=== PATIENT | female | born 1930 | race Asian ===

== ENCOUNTER 2018-01-07 03:41 | Inpatient (IN) | payer MEDICARE, MEDICAID ==
[~2018-01-07] VITALS: Ht 152.4 cm; Wt 72.6 kg
[2018-01-07] VITALS (7 sets, daily range): BP systolic 103–132; BP diastolic 47–69
--- NOTE | 2018-01-07 03:57 | Emergency Room Report ---
History of Present Illness General Chief Complaint: Multiple Trauma/Fall Source: Patient, Medical Record Present Illness HPI Is an 87 year-old Frisian female with a history sick sinus syndrome with pacemaker. She presents with mechanical fall and right hip pain. She was getting out of bed to go to the bathroom and tripped and fall. Unable to get up. [facility] called 911. No other injury. No head injury. Worse with movement. Pain is controlled with holding still. Worse with movement. Allergies: Coded Allergies: No Known Allergies (Unverified , 01/07/18) Patient History Past Medical History: see triage record, old chart reviewed, CAD Past Surgical History: pacemaker Pertinent Family History: none Social History: Denies: smoking Last Menstrual Period: none Now: No Immunizations: other Reviewed Nursing Documentation: PMH: Agreed; PSxH: Agreed Nursing Documentation-PMH Hx Pacemaker: Yes Review of Systems Eye: Denies: eye pain, blurred vision ENT: Denies: ear pain, nose congestion, throat swelling Respiratory: Denies: cough, shortness of breath Cardiovascular: Denies: chest pain, palpitations Gastrointestinal: Denies: abdominal pain, diarrhea, nausea, vomiting Musculoskeletal: Reports: joint pain; Denies: back pain Skin: Denies: rash Neurological: Denies: headache, numbness Endocrine: Denies: increased thirst, increased urine Hematologic/Lymphatic: Denies: easy bruising All Other Systems: negative except mentioned in HPI Physical Exam Vital Signs Date Time Temp Pulse Resp B/P (MAP) Pulse Ox O2 Delivery O2 Flow Rate FiO2 01/07/18 03:42 97.3 60 18 160/69 98 Room Air 97.3 vital signs with high blood pressure Sp02 EP Interpretation: reviewed, normal General Appearance: well appearing, no apparent distress, alert Head: normocephalic, atraumatic Eyes: bilateral eye PERRL, bilateral eye EOMI ENT: hearing grossly normal, normal pharynx Neck: full range of motion, supple, no meningismus Respiratory: chest non-tender, lungs clear, normal breath sounds Cardiovascular #1: regular rate, rhythm, no murmur Gastrointestinal: normal bowel sounds, non tender, no mass, no organomegaly, no bruit, non-distended Musculoskeletal: back normal, other - right leg is shortened and internally rotated. Neurologic: alert, oriented x3 Psychiatric: mood/affect normal Skin: warm/dry Medical Decision Making Diagnostic Impression: Primary Impression: Intertrochanteric fracture of right femur Qualified Codes: S72.141A - Displaced intertrochanteric fracture of right femur, initial encounter for closed fracture Additional Impressions: CKD (chronic kidney disease) Qualified Codes: N18.9 - Chronic kidney disease, unspecified Anemia Qualified Codes: D64.9 - Anemia, unspecified ER Course Patient presents with mechanical fall with a right hip fracture. No other injury. I discussed the case initially with Dr. Byers who is covering for Dr. Madsen. Lab Results Impression labs at baseline EKG Diagnostic Results Rate: normal Rhythm: NSR ST Segments: no acute changes Rhythm Strip Diag. Results Rhythm Strip Time: 04:54 EP Interpretation: yes Rate: 60 Rhythm: NSR Chest X-Ray Diagnostic Results Chest X-Ray Diagnostic Results : Chest X-Ray Ordered: Yes # of Views/Limited/Complete: 1 View Indication: Other EP Interpretation: Yes Interpretation: no consolidation, no effusion, no pneumothorax, no acute cardiopulmonary disease Impression: No acute disease Electronically Signed by: Urbano Correa MD Other X-Ray Diagnostic Results Other X-Ray Diagnostic Results : X-Ray ordered: Rt hip # of Views/Limited Vs Complete: 3 View Indication: Pain EP Interpretation: Yes Interpretation: no dislocation, no soft tissue swelling, other - displaced IT frx. Impression: Other - Rt hip frx Electronically Signed by: Urbano Correa MD Last Vital Signs Date Time Temp Pulse Resp B/P (MAP) Pulse Ox O2 Delivery O2 Flow Rate FiO2 01/07/18 03:42 97.3 60 18 160/69 98 Room Air 97.3 Status: improved Disposition: ADMITTED INPATIENT Condition: Serious URBANO CORREA M.D. Jan 07, 2018 03:57
[2018-01-07] MEDS ORDERED: OYSTER SHELL C1 EA17 PO (04:00)
[2018-01-07] MEDS ORDERED: ISOSORBIDE MONO20 MG PO (04:00)
[2018-01-07] MEDS ORDERED: LACTULOSE20 GM/301 ORAL (04:00)
[2018-01-07] MEDS ORDERED: EPOGEN20000 UNI1 SUBQ (04:00)
[2018-01-07] MEDS ORDERED: EPOGEN10000 UNIT SUBQ (04:00)
[2018-01-07] MEDS ORDERED: ELIQUIS2.5 MG PO (04:00)
[2018-01-07] MEDS ORDERED: FOSAMAX70 MG ORAL (04:00)
[2018-01-07] MEDS ORDERED: ACETAMINOPHEN325 M1 ORAL (04:00)
[2018-01-07] MEDS ORDERED: NEURONTIN100 MG ORAL (04:00)
[2018-01-07] MEDS ORDERED: ISOSORBIDE MONO30 M1 PO (04:00)
[2018-01-07] MEDS ORDERED: LIPITOR20 MG ORAL (04:00)
[2018-01-07] MEDS ORDERED: DULCOLAX10 MG RC (04:00)
[2018-01-07] MEDS ORDERED: FERROUS SULFAT325 MG ORAL (04:00)
[2018-01-07] MEDS ORDERED: AMIODARONE HCL200 MG ORAL (04:00)
[2018-01-07] MEDS ORDERED: Morphine Sulfate 4mg/ml Inj (IV USE ONLY) IVP ONE ×2 (04:00→06:45)
[2018-01-07] MEDS ORDERED: VESICARE5 MG ORAL (04:00)
[2018-01-07] MEDS ORDERED: FOLIC ACID1 MG ORAL (04:00)
[2018-01-07 04:17] LABS: BASOPHILS % (AUTO) 0.2 % (0.0-2.0); EOSINOPHILS % (AUTO) 0.8 % (0.0-3.0); HEMOGLOBIN 10.7 G/DL (12.0-16.0); LYMPHOCYTES % (AUTO) 24.9 % (20.0-45.0); MEAN CORPUSCULAR VOLUME 106 FL (80-99); MONOCYTES % (AUTO) 6.5 % (1.0-10.0); NEUTROPHILS % (AUTO) 67.5 % (45.0-75.0); PLATELET COUNT 155 K/UL (150-450); RED BLOOD COUNT 3.04 M/UL (4.20-5.40); RED CELL DISTRIBUTION WIDTH 13.7 % (11.6-14.8); WHITE BLOOD COUNT 9.8 K/UL (4.8-10.8)
[2018-01-07 04:27] LABS: ANION GAP 10 mmol/L (5-15); BLOOD UREA NITROGEN 27 mg/dL (7-18); CALCIUM 8.8 MG/DL (8.5-10.1); CARBON DIOXIDE 26 MMOL/L (21-32); CHLORIDE 101 MMOL/L (98-107); SODIUM 137 MMOL/L (136-145)
[2018-01-07 04:59] LABS: APPEARANCE,URINE CLEAR; BILIRUBIN, URINE NEGATIVE (NEGATIVE); COLOR,URINE PALE YELLOW; GLUCOSE, URINE (UA) NEGATIVE (NEGATIVE); KETONES,URINE NEGATIVE (NEGATIVE); LEUKOCYTE ESTERASE ,URINE NEGATIVE (NEGATIVE); NITRITE,URINE NEGATIVE (NEGATIVE); PH,URINE 6.5 (4.5-8.0); PROTEIN,URINE NEGATIVE (NEGATIVE); UROBILINOGEN,URINE NORMAL MG/DL (0.0-1.0)
--- NOTE | 2018-01-07 11:31 | Diagnostic Imaging Report ---
Indication: Dyspnea Comparison: None A single view chest radiograph was obtained. Findings: Lung volumes are low. There are bilateral vascular markings are prominent but may be normal accounting for the low lung volumes. Heart size is also prominent. Pacemaker noted. Bones are osteopenic. IMPRESSION: Limited study due to low lung volumes.
--- NOTE | 2018-01-07 11:32 | Diagnostic Imaging Report ---
Indications: hip pain Findings: Two views of the right hip were obtained. Comminuted intertrochanteric fracture of the right hip demonstrated. Bones are osteopenic. IMPRESSION: Intratrochanteric fracture of the right hip
[2018-01-07] MEDS ORDERED: Lactulose 20gm/30ml UDC ORAL PRN (13:00)
[2018-01-07] MEDS: D5NS 1,000 ML IV SCH (13:10)
--- NOTE | 2018-01-07 20:45 | History and Physical Report ---
DATE OF ADMISSION: 01/07/2018 CHIEF COMPLAINT: Fall, right hip fracture. HISTORY OF PRESENT ILLNESS: The patient is an 87-year-old female. She has a history of conduction system disease, status post pacemaker, hypertension and chronic kidney disease. She has a history of renal cell carcinoma status post nephrectomy. She sustained a mechanical fall while at the intermediate facility, had severe right hip pain. She presented to the emergency room. On evaluation there, x-ray showed a intercurrent intertrochanteric right hip fracture. She is now admitted for further evaluation and care. PAST MEDICAL HISTORY: As above. PAST SURGICAL HISTORY: As above. CURRENT MEDICATIONS: Reconciled and reviewed. ALLERGIES: None. FAMILY HISTORY: None. SOCIAL HISTORY: There is no known history of tobacco, ethanol, or drugs. REVIEW OF SYSTEMS: GENERAL: No fever or chills. HEENT: No headaches or visual changes. CARDIOPULMONARY: No chest pain or shortness of breath. GASTROINTESTINAL: No nausea or vomiting. GENITOURINARY: No urgency or frequency. MUSCULOSKELETAL: No joint pain or swelling. NEUROLOGIC: No evidence of seizures. PHYSICAL EXAMINATION: VITAL SIGNS: Temperature 98 degrees, pulse 63, respirations 18, and blood blood pressure 117/47. GENERAL: The patient is a well-developed female, in no apparent distress. HEART: Regular rate and rhythm. LUNGS: Lungs are clear. ABDOMEN: Soft, nontender and nondistended. EXTREMITIES: Without clubbing, cyanosis, or edema. The patient has minimal range of motion on the right hip due to pain. LABORATORY AND DIAGNOSTIC DATA: EKG showed sinus bradycardia at a rate of 60. White count was 10, hemoglobin 10, hematocrit 32 and platelets of 155. Coagulations are normal. Sodium 137, potassium 4.0, chloride 101, bicarbonate 26, BUN 27, and creatinine was 2. UA was clear. ASSESSMENT: This is a pleasant female admitted with complaints of a mechanical fall and right hip fracture. 1. Right hip fracture. 2. Mechanical fall. 3. Hypertension. 4. History of renal cell carcinoma status post nephrectomy. 5. History of conduction system disease, status post pacemaker. 6. Hypertension. PLAN: Regular diet. Orthopedics consultation. Check a 2D echo. Possible surgery in the morning if stable. I left a message with both family members and I am awaiting a call back to update them on the patient's current status. Anupam Byers M.D. DR: RYAN JOB#: [id number] CC:
[2018-01-07] MEDS: Atorvastatin 20mg tab ORAL SCH (20:55)
[2018-01-07] MEDS: Heparin 5000 units/ml inj SUBQ SCH (21:00)
--- NOTE | 2018-01-07 21:38 | Cardiology Progress Note ---
Subjective Subjective The patient is seen and examined, full consult note will be dictated shortly. Objective Last 24 Hour Vital Signs Date Time Temp Pulse Resp B/P (MAP) Pulse Ox O2 Delivery O2 Flow Rate FiO2 01/07/18 16:00 98.9 62 18 109/51 (70) 96 98.9 01/07/18 12:00 98.0 67 18 107/56 (73) 97 98.0 01/07/18 09:55 Room Air 01/07/18 08:40 98.1 64 18 103/53 (70) 95 98.1 01/07/18 08:30 97.7 63 18 117/47 98 Room Air 97.7 01/07/18 07:54 97.7 63 18 117/47 98 Room Air 97.7 01/07/18 05:20 97.3 62 18 127/55 98 Room Air 97.3 01/07/18 04:40 97.3 01/07/18 04:20 98.0 88 18 132/69 98 Room Air 98.0 01/07/18 04:10 97.3 01/07/18 03:42 97.3 60 18 160/69 98 Room Air 97.3 Laboratory Tests Test 01/07/18 04:00 01/07/18 04:26 White Blood Count 9.8 K/UL (4.8-10.8) Red Blood Count 3.04 M/UL (4.20-5.40) L Hemoglobin 10.7 G/DL (12.0-16.0) L Hematocrit 32.0 % (37.0-47.0) L Mean Corpuscular Volume 106 FL (80-99) H Mean Corpuscular Hemoglobin 35.3 PG (27.0-31.0) H Mean Corpuscular Hemoglobin Concent 33.5 G/DL (32.0-36.0) Red Cell Distribution Width 13.7 % (11.6-14.8) Platelet Count 155 K/UL (150-450) Mean Platelet Volume 6.4 FL (6.5-10.1) L Neutrophils (%) (Auto) 67.5 % (45.0-75.0) Lymphocytes (%) (Auto) 24.9 % (20.0-45.0) Monocytes (%) (Auto) 6.5 % (1.0-10.0) Eosinophils (%) (Auto) 0.8 % (0.0-3.0) Basophils (%) (Auto) 0.2 % (0.0-2.0) Prothrombin Time 10.5 SEC (9.30-11.50) Prothromb Time International Ratio 1.0 (0.9-1.1) Activated Partial Thromboplast Time 27 SEC (23-33) Sodium Level 137 MMOL/L (136-145) Potassium Level 4.0 MMOL/L (3.5-5.1) Chloride Level 101 MMOL/L (98-107) Carbon Dioxide Level 26 MMOL/L (21-32) Anion Gap 10 mmol/L (5-15) Blood Urea Nitrogen 27 mg/dL (7-18) H Creatinine 2.0 MG/DL (0.55-1.30) H Estimat Glomerular Filtration Rate mL/min (>60) Glucose Level 123 MG/DL (74-106) H Calcium Level 8.8 MG/DL (8.5-10.1) Troponin I 0.000 ng/mL (0.000-0.056) Urine Color Pale yellow Urine Appearance Clear Urine pH 6.5 (4.5-8.0) Urine Specific [place] 1.010 (1.005-1.035) Urine Protein Negative (NEGATIVE) Urine Glucose (UA) Negative (NEGATIVE) Urine Ketones Negative (NEGATIVE) Urine Occult Blood Negative (NEGATIVE) Urine Nitrite Negative (NEGATIVE) Urine Bilirubin Negative (NEGATIVE) Urine Urobilinogen Normal MG/DL (0.0-1.0) Urine Leukocyte Esterase Negative (NEGATIVE) Urine RBC 0-2 /HPF (0 - 2) Urine WBC 0 /HPF (0 - 2) Urine Squamous Epithelial Cells Few /LPF (NONE/OCC) Urine Bacteria None /HPF (NONE) Pro Yo MD Jan 07, 2018 21:38
[2018-01-08] VITALS (16 sets, daily range): BP systolic 93–147; BP diastolic 42–82
[2018-01-08] MEDS: D5NS 1,000 ML IV SCH (02:01)
[2018-01-08] MEDS: Calcium Carbonate 500mg w/Vit D 200iu tab ORAL SCH (08:29)
[2018-01-08] MEDS: Amiodarone 200mg tab ORAL SCH (08:34)
[2018-01-08] MEDS: Heparin 5000 units/ml inj SUBQ SCH ×2 (08:35→20:25)
--- NOTE | 2018-01-08 08:51 | General Progress Note ---
Assessment/Plan Problem List: (1) Anemia ICD Codes: D64.9 - Anemia, unspecified SNOMED: 511771221 Qualifiers: Qualified Codes: D64.9 - Anemia, unspecified (2) CKD (chronic kidney disease) ICD Codes: N18.9 - Chronic kidney disease, unspecified SNOMED: 505306268 Qualifiers: Qualified Codes: N18.9 - Chronic kidney disease, unspecified (3) Intertrochanteric fracture of right femur ICD Codes: S72.141A - Displaced intertrochanteric fracture of right femur, initial encounter for closed fracture SNOMED: 497476912 Qualifiers: Qualified Codes: S72.141A - Displaced intertrochanteric fracture of right femur, initial encounter for closed fracture (4) Hip fracture, right ICD Codes: S72.001A - Fracture of unspecified part of neck of right femur, initial encounter for closed fracture SNOMED: 349173213 Status: stable Assessment/Plan proceed with surgery d/w dtr cont current rx Subjective ROS Limited/Unobtainable: No Constitutional: Reports: malaise, weakness HEENT: Reports: no symptoms Cardiovascular: Reports: no symptoms Respiratory: Reports: no symptoms Genitourinary: Reports: no symptoms Neurologic/Psychiatric: Reports: pre-existing deficit Endocrine: Reports: no symptoms Hematologic/Lymphatic: Reports: no symptoms Allergies: Coded Allergies: No Known Allergies (Unverified , 01/07/18) All Systems: reviewed and negative except above Subjective no events. pain controlled. ortho and cards appreciated. d/w dtr. Objective Last 24 Hour Vital Signs Date Time Temp Pulse Resp B/P (MAP) Pulse Ox O2 Delivery O2 Flow Rate FiO2 01/08/18 08:00 97.2 64 16 106/46 (66) 99 97.2 01/08/18 04:00 97.5 63 17 100/52 (68) 95 97.5 01/08/18 00:00 98.1 62 18 93/48 (63) 96 98.1 01/07/18 21:00 Room Air 01/07/18 20:00 97.0 69 17 110/47 (68) 95 97.0 01/07/18 16:00 98.9 62 18 109/51 (70) 96 98.9 01/07/18 12:00 98.0 67 18 107/56 (73) 97 98.0 01/07/18 09:55 Room Air Intake and Output 01/07/18 01/08/18 19:00 07:00 Intake Total 875 ml 1065 ml Output Total 1000 ml 275 ml Balance -125 ml 790 ml Intake Oral 800 ml 240 ml IV Total 75 ml 825 ml Output Urine Total 1000 ml 275 ml # Bowel Movements 1 Laboratory Tests 01/08/18 07:30: Troponin I 0.004 Height (Feet): 5 Height (Inches): 0.00 Weight (Pounds): 120 General Appearance: WD/WN Neck: supple Cardiovascular: regular rhythm Respiratory/Chest: lungs clear, normal breath sounds Abdomen: normal bowel sounds, non tender, soft, no organomegaly Edema: no edema noted Arm (L), no edema noted Arm (R), no edema noted Leg (L), no edema noted Leg (R), no edema noted Pedal (L), no edema noted Pedal (R), no edema noted Generalized Anupam Byers MD Jan 08, 2018 08:51
[2018-01-08] MEDS ORDERED: Imdur 30mg tab ORAL SCH (09:00)
[2018-01-08] MEDS ORDERED: Midazolam 2mg/2ml Inj ONE (12:00)
[2018-01-08] MEDS ORDERED: Duramorph PF 5mg/10ml amp ONE (12:02)
[2018-01-08] MEDS ORDERED: Bupivacaine 0.5% Inj 30 ml vial INJ ONE ×2 (12:03→13:37)
--- NOTE | 2018-01-08 13:14 | Anethesia Preoperative Eval ---
Anesthesia Pre-op PMH/ROS General Date of Evaluation: Jan 08, 2018 Time of Evaluation: 13:07 Anesthesiologist: Syd ASA Score: ASA 3 Mallampati Score Class I : Soft palate, uvula, fauces, pillars visible Class II: Soft palate, uvula, fauces visible Class III: Soft palate, base of uvula visible Class IV: Only hard plate visible Mallampati Classification: Class III Surgeon: Kate Diagnosis: R hip Fx Surgical Procedure: ORIF of R hip Fx Family History: no anesthesia problems Allergies: Coded Allergies: No Known Allergies (Unverified , 01/07/18) Medications: see eMAR Past Medical History Cardiovascular: Reports: HTN, arrhythmia - pacer in place Pulmonary: Denies: asthma, COPD, RHONDA, other Gastrointestinal/Genitourinary: Reports: GERD, other - Renal cell CA s/p nephrectomy; Denies: CRI, ESRD Neurologic/Psychiatric: Reports: depression/anxiety; Denies: dementia, CVA, TIA, other Endocrine: Denies: DM, hypothyroidism, steroids, other HEENT: Denies: cataract (L), cataract (R), glaucoma, NISQUALLY (L), NISQUALLY (R), other Hematology/Immune: Reports: anemia - mild, bleeding disorder - anticoagulated; Denies: DVT, other Musculoskeletal/Integumentary: Reports: DJD, other - osteoporosis, compression Fx, kyfoplasty; Denies: OA, RA, DDD, edema PMH Narrative: as above, admitted for mechanical fall R hip Fx. PSxH Narrative: Nephrectomy, kyphoplasty,pacemaker placement Anesthesia Pre-op Phys. Exam Physician Exam Last Vital Signs Date Time Temp Pulse Resp B/P (MAP) Pulse Ox O2 Delivery O2 Flow Rate FiO2 01/08/18 12:00 98.7 61 19 118/42 (67) 98 98.7 01/08/18 08:30 Room Air Constitutional: NAD Neurologic: CN 2-12 intact Cardiovascular: RRR Respiratory: CTA Gastrointestinal: S/NT/ND Airway Exam Mallampati Score: Class III MO: limited Neck: stiff ROM: limited Teeth: missing Dentures: upper, lower Anesthesia Pre-op A/P Labs Chemistry Test 01/08/18 07:30 Troponin I 0.004 ng/mL (0.000-0.056) Risk Assessment & Plan Assessment: ASA 3 Plan: SAB vs GA Status Change Before Surgery: No Pre-Antibiotics Drug: Ancef 1 gr. Given Within 1 Hr of Incision: Yes Moreno Velarde MD Jan 08, 2018 13:14
[2018-01-08] MEDS ORDERED: LR 1000ml ONE (13:30)
[2018-01-08] MEDS ORDERED: Propofol 200mg/20ml IV ONE (13:30)
[2018-01-08] MEDS ORDERED: Sterile Water Irrig 1000ml IRRIG ONE (13:30)
[2018-01-08] MEDS ORDERED: EPINEPHrine 1mg/1ml Amp ONE (13:37)
[2018-01-08] MEDS ORDERED: NS Irrig 1000ml IRRIG ONE (14:15)
[2018-01-08] MEDS ORDERED: LR 1000ml 1,000 ML IVLG SCH (14:20)
[2018-01-08] MEDS ORDERED: fentaNYL 100 mcg/2 mL IV PRN (14:30)
[2018-01-08] MEDS ORDERED: DiphenhydrAMINE 50mg/ml Inj IVP PRN (14:30)
--- NOTE | 2018-01-08 14:53 | Pre-Procedure Note/Attestation ---
Pre-Procedure Note/Attestation Complete Prior to Procedure Planned Procedure: right Procedure Narrative: Open Reduction Internal Fixation Right Hip Fracture Indications for Procedure Pre-Operative Diagnosis: Right Hip Intertrochanteric Fracture Attestation I attest that I discussed the nature of the procedure; its benefits; risks and complications; and alternatives (and the risks and benefits of such alternatives ), prior to the procedure, with the patient (or the patient's legal client service representative). I attest that, if there was a reasonable possibility of needing a blood transfusion, the patient (or the patient's legal client service representative) was given the [facility] standardized written summary, pursuant to the [facility] [place] Blood Safety Act ([place] Health and Safety Code # 1645, as amended). I attest that I re-evaluated the patient just prior to the surgery and that there has been no change in the patient's H&P, except as documented below: Michele Mart MD Jan 08, 2018 14:53
--- NOTE | 2018-01-08 14:55 | Operative Note - PDOC ---
Operative Note Operative Note Date of Operation/Procedure: Jan 08, 2018 Pre-op Diagnosis: Right Hip Intertrochanteric Fracture Procedure: Open Reduction Internal Fixation Right Hip Fracture Post-op Diagnosis: Same Post-op Diagnosis: same as pre-op Surgeon: Michele Mart Anesthesia: general, local Specimen: none Complications: none Condition: stable Estimated Blood Loss: minimal Drains: none Implant(s) used?: Yes Michele Mart MD Jan 08, 2018 14:55
[2018-01-08] MEDS ORDERED: HYDROcodone/Acetamin 7.5/325 tab ORAL PRN (15:00)
[2018-01-08] MEDS ORDERED: Milk of Magnesia 30ml Ud ORAL PRN (15:00)
[2018-01-08] MEDS ORDERED: Norco 5mg/325mg tab ORAL PRN (15:00)
--- NOTE | 2018-01-08 15:15 | Immediate Post-Op Evaluation ---
Immediate Post-Op Evalulation Immediate Post-Op Evalulation Procedure: ORIF R hip Fx. Date of Evaluation: Jan 08, 2018 Time of Evaluation: 15:14 IV Fluids: 1000 Blood Products: none Estimated Blood Loss: 50 Urinary Output: 150 Blood Pressure Systolic: 117 Blood Pressure Diastolic: 54 Pulse Rate: 62 Respiratory Rate: 20 O2 Sat by Pulse Oximetry: 99 Temperature (Fahrenheit): 98.1 Pain Score (1-10): 2 Nausea: No Vomiting: No Complications none Patient Status: awake, patent, none Hydration Status: adequate Moreno Velarde MD Jan 08, 2018 15:15
[2018-01-08] MEDS: Docusate Sod/Senna tab ORAL SCH (18:00)
--- NOTE | 2018-01-08 18:02 | Diagnostic Imaging Report ---
Indication: Hip fracture Technique: Intraoperative fluoroscopic images from orthopedic surgery. Comparison: Hip radiographs 01/07/2018 Operating surgeon: Michele Mart MD Total fluoroscopy time: 34.1 seconds Total fluoroscopy dose: 5.69 mGy. Findings: 3 intraoperative fluoroscopic images from orthopedic surgery demonstrate open fixation of the previously described comminuted intertrochanteric fracture. Impression: Fluoroscopic images from orthopedic surgery. Please see operative report.
[2018-01-08] MEDS: Morphine Sulfate 2mg/ml Inj(IV/IM USE ONLY) IVP PRN (18:26)
[2018-01-08] MEDS: D5 1/2NS w/KCl 20mEq 1,000 ML IV SCH (18:27)
--- NOTE | 2018-01-08 19:00 | Consultation ---
DATE OF CONSULTATION: 01/07/2018 CARDIOLOGY CONSULTATION CONSULTING PHYSICIAN: Pro Yo M.D. REFERRING PHYSICIAN: Anupam Byers M.D. REASON FOR CONSULTATION: Preoperative cardiac evaluation for noncardiac surgery. HISTORY OF PRESENT ILLNESS: The patient is a very unfortunate, 87-year-old, Telugu female with a prior history of sick sinus syndrome, status post permanent pacemaker implantation, who presents to the hospital following a mechanical fall and right hip pain. The patient was trying to get out of bed to go to the bathroom and tripped and sustained a fall. She was unable to bear any weight and 911 was called from the nursing facility and the patient was brought to [facility] Emergency Department. Initial evaluation in the emergency department confirmed displaced intertrochanteric fracture of right femur. Cardiology consultation was made for preoperative cardiac clearance as the patient is prepared for possible open reduction and internal fixation of the right femur. PAST MEDICAL HISTORY: 1. History of CAD. 2. History of sick sinus syndrome, status post dual-chamber pacemaker implantation. 3. Paroxysmal atrial fibrillation. 4. History of osteoporosis. 5. History of dyslipidemia. 6. History of chronic kidney disease. 7. History of anemia of chronic disease. PAST SURGICAL HISTORY: Dual-chamber pacemaker implantation, the brand of which is unknown. LIST OF MEDICATIONS: 1. Acetaminophen 650 mg q.4 h. p.r.n. fever and pain. 2. Amiodarone 200 mg p.o. daily. 3. Fosamax 70 mg p.o. weekly. 4. Eliquis 2.5 mg daily. 5. Lipitor 20 mg p.o. once daily. 6. Dulcolax 10 mg rectal p.r.n. constipation. 7. Oyster Shell Calcium and Vitamin D one tablet daily. 8. Epogen 10,000 units subcutaneous once a week. 9. Ferrous sulfate 325 mg twice daily. 10. Folic acid 1 mg p.o. daily. 11. Neurontin 100 mg three times daily. 12. Isosorbide mononitrate 30 mg p.o. daily. 13. Lactulose 30 mL p.o. daily p.r.n. constipation. 14. VESIcare 5 mg p.o. daily. SOCIAL HISTORY: Denies any tobacco, alcohol, or illicit drug use. FAMILY HISTORY: No premature coronary artery disease in the first-degree relatives. REVIEW OF SYSTEMS: HEENT: Denies any headache, diplopia, or blurred vision. CONSTITUTIONAL: Complains of generalized weakness, but no fever, chills, night sweats, or weight gain. CARDIOVASCULAR: Denies any chest pain, shortness of breath, PND, orthopnea, leg swelling, palpitations, or any loss of consciousness during the above event. PULMONARY: Denies any cough, hemoptysis, or wheezing. GASTROINTESTINAL: Denies any nausea, vomiting, diarrhea, constipation, abdominal pain, or GI bleed. GENITOURINARY: Denies any hematuria, dysuria, or incontinence. NEUROLOGY: Denies any motor dysfunction, sensory deficit, or altered speech. MUSCULOSKELETAL: Inability to bear weight due to right hip pain and inability to move the right leg. PHYSICAL EXAMINATION: VITAL SIGNS: Blood pressure at the time of arrival to the hospital was 160/69, respirations of 18, pulse of 60, temperature 97.3 degrees Fahrenheit, and O2 saturation 99% on room air. GENERAL: The patient is a very unfortunate, 87-year-old female, in no apparent respiratory distress. Alert and oriented x4. HEENT: Atraumatic and normocephalic. EENT: Pupils are equal, round, and reactive to light and accommodation. Extraocular muscles intact. NECK: JVP less than 5 cm. No carotid bruit. Carotid upstroke is 2+ bilaterally. CVS: Normal S1 and S2. Regular rate and rhythm. No murmurs, gallops, or rubs. Pacemaker pocket in the left pectoral area is visible. LUNGS: Clear to auscultation bilaterally. ABDOMEN: Soft, nontender, and nondistended. No hepatosplenomegaly. Positive bowel sounds. EXTREMITIES: No evidence of edema, clubbing, or cyanosis. LABORATORY FINDINGS: WBC 9.8, hemoglobin 10.7, hematocrit of 32, and platelet count is 155,000. Sodium 137, potassium is 4.0, chloride 101, bicarbonate 26, BUN of 27, creatinine 2.0, glucose 123, and calcium is 8.8. Troponin I is 0. INR is 1.0. Chest x-ray showed no acute cardiopulmonary disease. Dual-chamber pacemaker noted. A 2D echocardiography report shows normal LV systolic function with LVEF of about 55% to 60%. Mild left atrial enlargement, mild aortic regurgitation, grade 1 LV diastolic dysfunction, moderate tricuspid regurgitation with RVSP of 46 mmHg consistent with moderate pulmonary hypertension and mild pulmonary regurgitation. ASSESSMENT AND PLAN: The patient is a very unfortunate 87-year-old female, who is seen in Cardiology consultation at the request of Dr. Byers. Evaluation of the electrocardiogram, 2D echocardiography, and the patient's clinical symptoms are all in favor of stable cardiac condition. There is no evidence of ischemia on 12-lead electrocardiogram. Troponin I level is within normal limits. A 2D echocardiography shows no evidence of wall motion abnormalities with normal left ventricular ejection fraction. The patient is cleared for the right hip ORIF with the risk of coronary artery disease estimated to be less than 1%. The patient is likely having paroxysmal atrial fibrillation also. It is not mentioned in the record given the fact that she is on amiodarone. We would like to continue amiodarone. Eliquis can be stopped for the purpose of surgery and resumed following surgery, which can also be used for DVT prophylaxis. I would like to thank Dr. Byers, for the courtesy of this consultation. Pro Yo M.D. DR: BLAIR JOB#: [id number] CC:
[2018-01-08] MEDS: Atorvastatin 20mg tab ORAL SCH (20:21)
[2018-01-08] MEDS: ceFAZolin sod 2 GM in D5W 110 ML IV SCH (22:22)
--- NOTE | 2018-01-08 23:30 | Consultation ---
DATE OF CONSULTATION: 01/08/2018 REASON FOR CONSULTATION: Right hip pain. HISTORY OF PRESENT ILLNESS: The patient is an 87-year-old female, who was seen in consultation for right hip pain. She is apparently a resident at a nursing facility. She slipped while on her way to the bathroom. She was subsequently brought in yesterday and was found to have a right hip fracture and I was consulted. At the present time, the patient points to her right thigh as being the source for her pain. PAST MEDICAL HISTORY: Significant for, 1. Hypertension. 2. Chronic kidney disease. 3. History of pacemaker placement. MEDICATIONS: Well documented in the medical chart. ALLERGIES: No known drug allergies. PHYSICAL EXAM: GENERAL: This is an elderly Sinhala speaking female, in no acute distress. VITAL SIGNS: She is afebrile. Vital signs stable. EXTREMITIES: Evaluation of right lower extremity reveals any attempted motion of the right lower extremity elicits tenderness in the right groin and thigh itself is soft. She moves her toes on command. Her foot is warm, but well perfused. DIAGNOSTIC DATA: X-rays were reviewed. X-rays show a right hip intertrochanteric fracture with some mild comminution. The fracture is shortened and displaced. LABORATORY DATA: White blood count is 9.8, hematocrit 32.0, and platelet 155,000. Her INR is 1.0. IMPRESSION: Right hip intertrochanteric fracture. RECOMMENDATIONS: Open reduction and internal fixation of the right hip fracture. The patient is medically optimized and cleared by Cardiology. Plan is to proceed with open reduction and internal fixation. I have discussed in detail my plan with the patient's daughter and her granddaughter. I explained the procedure in detail. I explained all risks and benefits for the procedure. Michele Mart M.D. DR: GUSTAVO JOB#: [id number] CC:
[2018-01-09] VITALS: BP 112/59
--- NOTE | 2018-01-09 00:15 | Operative Note - Dictated ---
DATE OF OPERATION: 01/08/2018 PREOPERATIVE DIAGNOSIS: Right hip intertrochanteric fracture. POSTOPERATIVE DIAGNOSIS: Right hip intertrochanteric fracture. PROCEDURE: Open reduction and internal fixation of right hip fracture. SURGEON: Michele Mart M.D. STRUCTURAL IRON ERECTOR: None. ANESTHESIA: General endotracheal anesthesia with local anesthetic. ESTIMATED BLOOD LOSS: Less than 50 mL. IMPLANTS USED: Artie trochanteric femoral nail, short. INDICATION OF PROCEDURE: The patient is an 87-year-old female, who sustained a mechanical fall, which resulted in the above fracture. She has been medically optimized. She now presents for the above procedure. Risks and benefits were discussed with the patient's daughter and granddaughter. Informed consent was obtained. DESCRIPTION OF PROCEDURE: The patient's correct extremity was identified in the preoperative area. She was brought back to the operative where she had preoperative antibiotics administered. She had general endotracheal anesthesia. She was positioned on a fracture table. All bony prominences were adequately padded. The right lower extremity was then prepped and draped in standard surgical manner. A time-out was performed. I then made a small incision proximal to the tip of the greater trochanter, went through the skin, subcutaneous tissue, and incised the fascia. Upon the tip of the greater trochanter, I put a 3.2 mm guide pin into the proximal femur. This was found to be in very good position in both AP and lateral. I then over-reamed it. I then passed a short trochanteric femoral nail from Artie till it was fully seated. Through a separate incision, I put a lag screw and then through a smaller third incision, I put a distal locking screw to fix the nail plate. X-rays showed anatomic fixation of the fracture. At this point, I took out all instruments. I thoroughly irrigated the wounds, closed the deeper tissue with interrupted #1 Vicryl, subcutaneous tissue was closed with 2-0 Vicryl and skin with daron. Dry sterile dressings were applied. The patient was then extubated and transported to recovery in stable condition. Michele Mart M.D. DR: ANMOL JOB#: [id number] CC:
[2018-01-09] MEDS: Morphine Sulfate 2mg/ml Inj(IV/IM USE ONLY) IVP PRN (02:43)
[2018-01-09 04:00] VITALS: BP 118/57
[2018-01-09] MEDS: ceFAZolin sod 2 GM in D5W 110 ML IV SCH (05:18)
--- NOTE | 2018-01-09 07:35 | 48 Hour Post Anesthesia Eval ---
Post Anesthesia Evaluation Procedure: ORIF R hip Fx. Date of Evaluation: Jan 09, 2018 Time of Evaluation: 07:10 Blood Pressure Systolic: 118 0: 57 Pulse Rate: 60 Respiratory Rate: 18 Temperature (Fahrenheit): 99.3 O2 Sat by Pulse Oximetry: 100 Airway: patent Nausea: No Vomiting: No Pain Intensity: 0 Hydration Status: adequate Cardiopulmonary Status: at baseline Mental Status/LOC: patient returned to baseline Post-Anesthesia Complications: 0 Follow-up care needed: N/A - further care as per primary team KIMO VALDES M.D. Jan 09, 2018 07:35
[2018-01-09 08:00] VITALS: BP 114/57
[2018-01-09] MEDS: D5 1/2NS w/KCl 20mEq 1,000 ML IV SCH ×2 (08:24→20:33)
[2018-01-09 08:51] LABS: HEMATOCRIT 22.5 % (37.0-47.0); HEMOGLOBIN 7.2 G/DL (12.0-16.0); MEAN CORPUSCULAR VOLUME 109 FL (80-99); PLATELET COUNT 119 K/UL (150-450); RED BLOOD COUNT 2.07 M/UL (4.20-5.40); RED CELL DISTRIBUTION WIDTH 14.3 % (11.6-14.8); WHITE BLOOD COUNT 7.4 K/UL (4.8-10.8)
[2018-01-09] MEDS ORDERED: Enoxaparin 30mg Inj SUBQ SCH (09:00)
--- NOTE | 2018-01-09 09:26 | General Progress Note ---
Assessment/Plan Problem List: (1) Anemia ICD Codes: D64.9 - Anemia, unspecified SNOMED: 865408587 Qualifiers: Qualified Codes: D64.9 - Anemia, unspecified (2) CKD (chronic kidney disease) ICD Codes: N18.9 - Chronic kidney disease, unspecified SNOMED: 691222441 Qualifiers: Qualified Codes: N18.9 - Chronic kidney disease, unspecified (3) Intertrochanteric fracture of right femur ICD Codes: S72.141A - Displaced intertrochanteric fracture of right femur, initial encounter for closed fracture SNOMED: 835884330 Qualifiers: Qualified Codes: S72.141A - Displaced intertrochanteric fracture of right femur, initial encounter for closed fracture (4) Hip fracture, right ICD Codes: S72.001A - Fracture of unspecified part of neck of right femur, initial encounter for closed fracture SNOMED: 809333068 Status: stable, progressing Assessment/Plan post op care dvt prophylaxis skin care cont current rx follow up pending labs Subjective ROS Limited/Unobtainable: Yes Constitutional: Reports: malaise, weakness HEENT: Reports: no symptoms Cardiovascular: Reports: no symptoms Respiratory: Reports: no symptoms Gastrointestinal/Abdominal: Reports: no symptoms Genitourinary: Reports: no symptoms Neurologic/Psychiatric: Reports: no symptoms Endocrine: Reports: no symptoms Hematologic/Lymphatic: Reports: no symptoms Allergies: Coded Allergies: No Known Allergies (Unverified , 01/07/18) All Systems: reviewed and negative except above Subjective no events. pain controlled. s/p orif. Objective Last 24 Hour Vital Signs Date Time Temp Pulse Resp B/P (MAP) Pulse Ox O2 Delivery O2 Flow Rate FiO2 01/09/18 08:00 99.1 64 20 114/57 (76) 93 99.1 01/09/18 07:35 210.7 60 18 100 01/09/18 04:00 99.3 60 18 118/57 (77) 100 99.3 01/09/18 00:00 99.3 61 19 112/59 (76) 98 99.3 01/08/18 21:00 Room Air 01/08/18 20:00 98.7 63 19 126/52 (76) 100 98.7 01/08/18 17:09 98.6 67 20 123/82 (96) 98 98.6 01/08/18 16:45 98.3 61 19 147/60 100 Nasal Cannula 3 98.3 01/08/18 16:30 65 15 144/60 100 Nasal Cannula 3 01/08/18 16:15 62 18 132/55 100 Nasal Cannula 3 01/08/18 16:00 64 17 113/50 100 Nasal Cannula 3 01/08/18 16:00 98.3 01/08/18 15:45 72 15 123/52 100 Nasal Cannula 3 01/08/18 15:30 98.0 01/08/18 15:30 74 17 125/51 100 Nasal Cannula 3 01/08/18 15:25 71 20 117/56 99 Nasal Cannula 3 01/08/18 15:15 70 22 117/56 100 Nasal Cannula 3 01/08/18 15:15 208.6 62 20 99 01/08/18 15:10 70 22 117/56 100 Simple Mask 6 01/08/18 15:05 97.8 61 20 127/62 100 Simple Mask 6 97.8 01/08/18 12:00 98.7 61 19 118/42 (67) 98 98.7 Intake and Output 01/08/18 01/09/18 19:00 07:00 Intake Total 1500 ml 745 ml Output Total 950 ml 850 ml Balance 550 ml -105 ml Intake Oral 100 ml IV Total 1400 ml 745 ml Output Urine Total 900 ml 850 ml Estimated Blood Loss 50 ml Laboratory Tests 01/09/18 06:00: White Blood Count [Pending], Red Blood Count [Pending], Hemoglobin [Pending], Hematocrit [Pending], Mean Corpuscular Volume [Pending], Mean Corpuscular Hemoglobin [Pending], Mean Corpuscular Hemoglobin Concent [Pending], Red Cell Distribution Width [Pending], Platelet Count [Pending], Mean Platelet Volume [ Pending], Neutrophils (%) (Auto) [Pending], Lymphocytes (%) (Auto) [Pending], Monocytes (%) (Auto) [Pending], Eosinophils (%) (Auto) [Pending], Basophils (%) (Auto) [Pending] Height (Feet): 5 Height (Inches): 0.00 Weight (Pounds): 160 General Appearance: WD/WN, alert Neck: supple Cardiovascular: normal rate, regular rhythm Respiratory/Chest: chest wall non-tender, lungs clear, normal breath sounds Abdomen: normal bowel sounds, non tender, soft Edema: no edema noted Arm (L), no edema noted Arm (R), no edema noted Leg (L), no edema noted Leg (R), no edema noted Pedal (L), no edema noted Pedal (R), no edema noted Generalized Anupam Byers MD Jan 09, 2018 09:26
[2018-01-09] MEDS: Docusate Sod/Senna tab ORAL SCH ×2 (10:00→18:00)
[2018-01-09] MEDS: Calcium Carbonate 500mg w/Vit D 200iu tab ORAL SCH (10:00)
[2018-01-09] MEDS: Amiodarone 200mg tab ORAL SCH (10:00)
[2018-01-09 12:00] VITALS: BP 98/38
[2018-01-09] MEDS ORDERED: Sodium Chloride 500ML 500 ML IV ONE (12:15)
[2018-01-09 16:13] VITALS: BP 101/53
[2018-01-09] MEDS ORDERED: Tubing IV Secondary IV ONE (16:44)
[2018-01-09] MEDS ORDERED: NS 275ml ONE (16:44)
[2018-01-09 20:00] VITALS: BP 105/39
--- NOTE | 2018-01-09 20:19 | Cardiology Progress Note ---
Assessment/Plan Assessment/Plan 1. s/p right hip ORIF, POD #1, no richard-operative cardiac events, resume Eliquis 2.5mg bid. 2. History of sick sinus syndrome, status post dual-chamber pacemaker implantation. 3. Paroxysmal atrial fibrillation, in SR, continue amiodarone. 4. History of osteoporosis. 5. History of dyslipidemia. 6. History of chronic kidney disease. 7. History of anemia of chronic disease. Subjective Subjective Sinus rhythm at 62. Objective Last 24 Hour Vital Signs Date Time Temp Pulse Resp B/P (MAP) Pulse Ox O2 Delivery O2 Flow Rate FiO2 01/09/18 18:37 100.7 01/09/18 17:38 101.1 01/09/18 16:13 99.0 62 17 101/53 (69) 100 99.0 01/09/18 12:00 97.6 79 20 98/38 (58) 93 97.6 01/09/18 09:00 Room Air 01/09/18 08:00 99.1 64 20 114/57 (76) 93 99.1 01/09/18 07:35 210.7 60 18 100 01/09/18 04:00 99.3 60 18 118/57 (77) 100 99.3 01/09/18 00:00 99.3 61 19 112/59 (76) 98 99.3 01/08/18 21:00 Room Air Intake and Output 01/08/18 01/09/18 19:00 07:00 Intake Total 1500 ml 745 ml Output Total 950 ml 850 ml Balance 550 ml -105 ml Intake Oral 100 ml IV Total 1400 ml 745 ml Output Urine Total 900 ml 850 ml Estimated Blood Loss 50 ml 2D Echo: EF 55-60%, Grade I LVDD, RVSP 46 mmHg Laboratory Tests Test 01/09/18 06:00 White Blood Count 7.4 K/UL (4.8-10.8) Red Blood Count 2.07 M/UL (4.20-5.40) L Hemoglobin 7.2 G/DL (12.0-16.0) L Hematocrit 22.5 % (37.0-47.0) L Mean Corpuscular Volume 109 FL (80-99) H Mean Corpuscular Hemoglobin 34.7 PG (27.0-31.0) H Mean Corpuscular Hemoglobin Concent 32.0 G/DL (32.0-36.0) Red Cell Distribution Width 14.3 % (11.6-14.8) Platelet Count 119 K/UL (150-450) L Mean Platelet Volume 6.5 FL (6.5-10.1) Neutrophils (%) (Auto) % (45.0-75.0) Lymphocytes (%) (Auto) % (20.0-45.0) Monocytes (%) (Auto) % (1.0-10.0) Eosinophils (%) (Auto) % (0.0-3.0) Basophils (%) (Auto) % (0.0-2.0) Differential Total Cells Counted 100 Neutrophils % (Manual) 72 % (45-75) Lymphocytes % (Manual) 22 % (20-45) Monocytes % (Manual) 5 % (1-10) Eosinophils % (Manual) 0 % (0-3) Basophils % (Manual) 0 % (0-2) Band Neutrophils 1 % (0-8) Platelet Estimate Decreased L Platelet Morphology Normal Hypochromasia 1+ Macrocytosis 1+ Microbiology Date/Time Source Procedure Growth Status 01/07/18 09:00 Nasal Nares 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 Complete 01/07/18 09:00 Rectum VRE Culture - Final NO VANCOMYCIN RESISTANT ENTEROCOCCUS ... Complete Objective HEENT: Atraumatic and normocephalic. EENT: Pupils are equal, round, and reactive to light and accommodation. Extraocular muscles intact. NECK: JVP less than 5 cm. No carotid bruit. Carotid upstroke is 2+ bilaterally. CVS: Normal S1 and S2. Regular rate and rhythm. No murmurs, gallops, or rubs. Pacemaker pocket in the left pectoral area is visible. LUNGS: Clear to auscultation bilaterally. ABDOMEN: Soft, nontender, and nondistended. No hepatosplenomegaly. Positive bowel sounds. EXTREMITIES: No evidence of edema, clubbing, or cyanosis. Pro Yo MD Jan 09, 2018 20:19
[2018-01-09] MEDS: Atorvastatin 20mg tab ORAL SCH (20:33)
[2018-01-09] MEDS ORDERED: Docusate 100mg/10ml Liq NG SCH (21:00)
[2018-01-09] MEDS ORDERED: Ferrous Sulfate 300 MG/5 ML UDC NG SCH (21:00)
--- NOTE | 2018-01-09 21:09 | Orthopedic Progress Note ---
Orthopedic - Progress Note Subjective Additional Comments No complaint.s Objective Vital Signs Last 24 Hour Vital Signs Date Time Temp Pulse Resp B/P (MAP) Pulse Ox O2 Delivery O2 Flow Rate FiO2 01/09/18 20:00 100.4 61 22 105/39 (61) 100 100.4 01/09/18 18:37 100.7 01/09/18 17:38 101.1 01/09/18 16:13 99.0 62 17 101/53 (69) 100 99.0 01/09/18 12:00 97.6 79 20 98/38 (58) 93 97.6 01/09/18 09:00 Room Air 01/09/18 08:00 99.1 64 20 114/57 (76) 93 99.1 01/09/18 07:35 210.7 60 18 100 01/09/18 04:00 99.3 60 18 118/57 (77) 100 99.3 01/09/18 00:00 99.3 61 19 112/59 (76) 98 99.3 I&O Intake and Output 01/08/18 01/09/18 19:00 07:00 Intake Total 1500 ml 745 ml Output Total 950 ml 850 ml Balance 550 ml -105 ml Intake Oral 100 ml IV Total 1400 ml 745 ml Output Urine Total 900 ml 850 ml Estimated Blood Loss 50 ml Additional Comments Dressing c/d/i. No drainage. Thigh mild swelling, but soft. Intact motor and sensory function in foot. Foot warm to touch. Assessment Post-op Diagnosis Same Procedure Performed Open Reduction Internal Fixation Right Hip Fracture Plan Plan: PT Additional Comments Low H and H today. Patient was being transfused and spike a temp of 101.1 Recommend recheck H and H tomorrow. Not much blood loss during surgery. Encourage incentive spirometer. OOB with PT Lovenox, SCD's for DVT prophylaxis Michele Mart MD Jan 09, 2018 21:09
[2018-01-10] VITALS (9 sets, daily range): BP systolic 73–120; BP diastolic 34–58
[2018-01-10] MEDS ORDERED: Sodium Chloride 500ML 500 ML IV ONE ×2 (01:00→04:00)
[2018-01-10] MEDS: D5 1/2NS w/KCl 20mEq 1,000 ML IV SCH ×2 (01:04→15:06)
[2018-01-10] MEDS ORDERED: Morphine Sulfate 2mg/ml Inj(IV/IM USE ONLY) IVP PRN (03:00)
[2018-01-10] MEDS ORDERED: Norco 5mg/325mg tab ORAL PRN (03:00)
[2018-01-10 08:41] LABS: HEMATOCRIT 20.7 % (37.0-47.0); MEAN CORPUSCULAR VOLUME 111 FL (80-99); PLATELET COUNT 122 K/UL (150-450); RED BLOOD COUNT 1.86 M/UL (4.20-5.40); RED CELL DISTRIBUTION WIDTH 14.8 % (11.6-14.8)
[2018-01-10 08:57] LABS: HEMOGLOBIN 6.5 G/DL (12.0-16.0)
[2018-01-10] MEDS ORDERED: Eliquis 2.5mg tablet ORAL SCH ×2 (09:00→18:00)
[2018-01-10] MEDS ORDERED: Docusate 100mg/10ml Liq NG SCH (09:00)
[2018-01-10] MEDS ORDERED: Lactulose 20gm/30ml UDC ORAL PRN (09:00)
[2018-01-10] MEDS ORDERED: Ferrous Sulfate 300 MG/5 ML UDC NG SCH (09:00)
[2018-01-10] MEDS: Calcium Carbonate 500mg w/Vit D 200iu tab ORAL SCH (09:05)
[2018-01-10] MEDS: Amiodarone 200mg tab ORAL SCH (09:05)
--- NOTE | 2018-01-10 09:09 | General Progress Note ---
Assessment/Plan Problem List: (1) Anemia ICD Codes: D64.9 - Anemia, unspecified SNOMED: 251287377 Qualifiers: Qualified Codes: D64.9 - Anemia, unspecified (2) CKD (chronic kidney disease) ICD Codes: N18.9 - Chronic kidney disease, unspecified SNOMED: 589875234 Qualifiers: Qualified Codes: N18.9 - Chronic kidney disease, unspecified (3) Intertrochanteric fracture of right femur ICD Codes: S72.141A - Displaced intertrochanteric fracture of right femur, initial encounter for closed fracture SNOMED: 426726525 Qualifiers: Qualified Codes: S72.141A - Displaced intertrochanteric fracture of right femur, initial encounter for closed fracture (4) Hip fracture, right ICD Codes: S72.001A - Fracture of unspecified part of neck of right femur, initial encounter for closed fracture SNOMED: 587748682 Status: stable, progressing Assessment/Plan post op care ivf/boluses as needed transfuse dvt prophylaxis skin care cont current rx follow up pending labs Subjective ROS Limited/Unobtainable: No Constitutional: Reports: malaise, weakness HEENT: Reports: no symptoms Cardiovascular: Reports: no symptoms Respiratory: Reports: no symptoms Gastrointestinal/Abdominal: Reports: no symptoms Genitourinary: Reports: no symptoms Neurologic/Psychiatric: Reports: no symptoms Endocrine: Reports: no symptoms Hematologic/Lymphatic: Reports: no symptoms Allergies: Coded Allergies: No Known Allergies (Unverified , 01/07/18) All Systems: reviewed and negative except above Subjective hypotensive last night. decrease h/h. developed fever with transfusion- dcd. given tylenol and benadryl. multiple boluses last night. decrease uop. Objective Last 24 Hour Vital Signs Date Time Temp Pulse Resp B/P (MAP) Pulse Ox O2 Delivery O2 Flow Rate FiO2 01/10/18 05:01 70 01/10/18 05:00 78 108/47 (67) 01/10/18 04:00 97.5 69 21 86/39 (55) 100 97.5 01/10/18 02:45 72 73/34 (47) 01/10/18 01:15 97.7 67 20 89/41 (57) 93 97.7 01/10/18 01:00 67 01/10/18 00:00 98.7 66 22 101/42 (61) 97 98.7 01/09/18 21:00 Room Air 01/09/18 20:00 100.4 61 22 105/39 (61) 100 100.4 01/09/18 18:37 100.7 01/09/18 17:38 101.1 01/09/18 16:13 99.0 62 17 101/53 (69) 100 99.0 01/09/18 12:00 97.6 79 20 98/38 (58) 93 97.6 Intake and Output 01/09/18 01/10/18 19:00 07:00 Intake Total 280 ml 1375 ml Output Total 400 ml Balance 280 ml 975 ml Intake Oral 280 ml IV Total 1375 ml Output Urine Total 400 ml Laboratory Tests 01/10/18 04:03: Arterial Blood pH 7.375, Arterial Blood Partial Pressure CO2 35.8, Arterial Blood Partial Pressure O2 80.9, Arterial Blood HCO3 20.5L, Arterial Blood Oxygen Saturation 95.5, Arterial Blood Base Excess -4.3, Robin Test Positive 01/10/18 07:50: White Blood Count 6.0, Red Blood Count 1.86L, Hemoglobin 6.5*L, Hematocrit 20.7L , Mean Corpuscular Volume 111H, Mean Corpuscular Hemoglobin 34.8H, Mean Corpuscular Hemoglobin Concent 31.4L, Red Cell Distribution Width 14.8, Platelet Count 122L, Mean Platelet Volume 7.3, Neutrophils (%) (Auto) , Lymphocytes (%) (Auto) , Monocytes (%) (Auto) , Eosinophils (%) (Auto) , Basophils (%) (Auto) , Neutrophils % (Manual) [Pending], Lymphocytes % (Manual) [Pending], Platelet Estimate [Pending], Platelet Morphology [Pending] Height (Feet): 5 Height (Inches): 0.00 Weight (Pounds): 160 General Appearance: WD/WN, alert Neck: supple Cardiovascular: normal rate, regular rhythm Respiratory/Chest: chest wall non-tender, lungs clear Abdomen: normal bowel sounds, non tender, soft, no organomegaly Edema: no edema noted Arm (L), no edema noted Arm (R), no edema noted Leg (L), no edema noted Leg (R), no edema noted Pedal (L), no edema noted Pedal (R), no edema noted Generalized Anupam Byers MD Jan 10, 2018 09:09
--- NOTE | 2018-01-10 12:11 | Diagnostic Imaging Report ---
Indication: Cough Comparison: 01/07/2018 A single view chest radiograph was obtained. Findings: Interstitial opacities are prominent. Heart size is prominent but stable. Lung volumes are low. Bones are osteopenic. Pacemaker noted on the left. IMPRESSION: Mild interstitial edema suspected
[2018-01-10] MEDS ORDERED: Milk of Magnesia 30ml Ud ORAL PRN (15:00)
--- NOTE | 2018-01-10 18:20 | Orthopedic Progress Note ---
Orthopedic - Progress Note Subjective Additional Comments No complaints. Objective Vital Signs Last 24 Hour Vital Signs Date Time Temp Pulse Resp B/P (MAP) Pulse Ox O2 Delivery O2 Flow Rate FiO2 01/10/18 16:00 98.4 66 20 99/54 (69) 97 98.4 01/10/18 15:21 68 01/10/18 12:15 98.4 01/10/18 12:14 63 01/10/18 12:00 98.4 64 20 112/44 (66) 95 98.4 01/10/18 11:16 97.9 01/10/18 09:00 Room Air 01/10/18 08:00 97.9 77 20 120/58 (78) 94 97.9 01/10/18 07:42 76 01/10/18 05:01 70 01/10/18 05:00 78 108/47 (67) 01/10/18 04:00 97.5 69 21 86/39 (55) 100 97.5 01/10/18 02:45 72 73/34 (47) 01/10/18 01:15 97.7 67 20 89/41 (57) 93 97.7 01/10/18 01:00 67 01/10/18 00:00 98.7 66 22 101/42 (61) 97 98.7 01/09/18 21:00 Room Air 01/09/18 20:00 100.4 61 22 105/39 (61) 100 100.4 01/09/18 18:37 100.7 I&O Intake and Output 01/09/18 01/10/18 19:00 07:00 Intake Total 280 ml 1375 ml Output Total 400 ml Balance 280 ml 975 ml Intake Oral 280 ml IV Total 1375 ml Output Urine Total 400 ml Wound: clean Neuro Status: normal Vascular Status: normal Additional Comments Thigh soft, but slightly swollen. Assessment Post-op Diagnosis Same Procedure Performed Open Reduction Internal Fixation Right Hip Fracture Plan Plan: PT, pain management Additional Comments H and H a little lower today. Possible she lost some blood in thigh. Thigh is not significantly swollen. Would recommend holding Lovenox for now. SCD 's for DVT prophylaxis. She was transfused with PRBC's today. Recheck H and H tomorrow. OOB with PT, WBAT Michele Mart MD Jan 10, 2018 18:20
--- NOTE | 2018-01-10 19:51 | Cardiology Progress Note ---
Assessment/Plan Assessment/Plan 1. s/p right hip ORIF, POD #2, no richard-operative cardiac events, resume Eliquis. 2. History of sick sinus syndrome, status post dual-chamber pacemaker implantation. 3. Paroxysmal atrial fibrillation, in SR, continue amiodarone. 4. History of osteoporosis. 5. History of dyslipidemia. 6. History of chronic kidney disease. 7. History of anemia of chronic disease. Subjective Subjective Sinus rhythm at 66. Objective Last 24 Hour Vital Signs Date Time Temp Pulse Resp B/P (MAP) Pulse Ox O2 Delivery O2 Flow Rate FiO2 01/10/18 16:00 98.4 66 20 99/54 (69) 97 98.4 01/10/18 15:21 68 01/10/18 12:15 98.4 01/10/18 12:14 63 01/10/18 12:00 98.4 64 20 112/44 (66) 95 98.4 01/10/18 11:16 97.9 01/10/18 09:00 Room Air 01/10/18 08:00 97.9 77 20 120/58 (78) 94 97.9 01/10/18 07:42 76 01/10/18 05:01 70 01/10/18 05:00 78 108/47 (67) 01/10/18 04:00 97.5 69 21 86/39 (55) 100 97.5 01/10/18 02:45 72 73/34 (47) 01/10/18 01:15 97.7 67 20 89/41 (57) 93 97.7 01/10/18 01:00 67 01/10/18 00:00 98.7 66 22 101/42 (61) 97 98.7 01/09/18 21:00 Room Air 01/09/18 20:00 100.4 61 22 105/39 (61) 100 100.4 Intake and Output 01/09/18 01/10/18 19:00 07:00 Intake Total 280 ml 1375 ml Output Total 400 ml Balance 280 ml 975 ml Intake Oral 280 ml IV Total 1375 ml Output Urine Total 400 ml 2D Echo: EF 55-60%, Grade I LVDD, RVSP 46 mmHg Laboratory Tests Test 01/10/18 04:03 01/10/18 07:50 Arterial Blood pH 7.375 (7.350-7.450) Arterial Blood Partial Pressure CO2 35.8 mmHg (35.0-45.0) Arterial Blood Partial Pressure O2 80.9 mmHg (75.0-100.0) Arterial Blood HCO3 20.5 mmol/L (22.0-26.0) L Arterial Blood Oxygen Saturation 95.5 % (92.0-98.0) Arterial Blood Base Excess -4.3 Robin Test Positive White Blood Count 6.0 K/UL (4.8-10.8) Red Blood Count 1.86 M/UL (4.20-5.40) L Hemoglobin 6.5 G/DL (12.0-16.0) *L Hematocrit 20.7 % (37.0-47.0) L Mean Corpuscular Volume 111 FL (80-99) H Mean Corpuscular Hemoglobin 34.8 PG (27.0-31.0) H Mean Corpuscular Hemoglobin Concent 31.4 G/DL (32.0-36.0) L Red Cell Distribution Width 14.8 % (11.6-14.8) Platelet Count 122 K/UL (150-450) L Mean Platelet Volume 7.3 FL (6.5-10.1) Neutrophils (%) (Auto) % (45.0-75.0) Lymphocytes (%) (Auto) % (20.0-45.0) Monocytes (%) (Auto) % (1.0-10.0) Eosinophils (%) (Auto) % (0.0-3.0) Basophils (%) (Auto) % (0.0-2.0) Differential Total Cells Counted 100 Neutrophils % (Manual) 63 % (45-75) Lymphocytes % (Manual) 25 % (20-45) Monocytes % (Manual) 9 % (1-10) Eosinophils % (Manual) 0 % (0-3) Basophils % (Manual) 0 % (0-2) Band Neutrophils 3 % (0-8) Platelet Estimate Decreased L Platelet Morphology Normal Hypochromasia 1+ Anisocytosis 1+ Macrocytosis 1+ Objective HEENT: Atraumatic and normocephalic. EENT: Pupils are equal, round, and reactive to light and accommodation. Extraocular muscles intact. NECK: JVP less than 5 cm. No carotid bruit. Carotid upstroke is 2+ bilaterally. CVS: Normal S1 and S2. Regular rate and rhythm. No murmurs, gallops, or rubs. Pacemaker pocket in the left pectoral area is visible. LUNGS: Clear to auscultation bilaterally. ABDOMEN: Soft, nontender, and nondistended. No hepatosplenomegaly. Positive bowel sounds. EXTREMITIES: No evidence of edema, clubbing, or cyanosis. Pro Yo MD Jan 10, 2018 19:51
[2018-01-10] MEDS: Atorvastatin 20mg tab ORAL SCH (20:23)
[2018-01-10] MEDS: Docusate 100mg/10ml Liq ORAL SCH (20:24)
[2018-01-10] MEDS: Ferrous Sulfate 300 MG/5 ML UDC ORAL SCH (20:24)
[2018-01-10] MEDS ORDERED: Epogen (for ESRD on dialysis) SUBQ SCH (21:00)
[2018-01-10 22:08] LABS: HEMATOCRIT 21.4 % (37.0-47.0); HEMOGLOBIN 7.2 G/DL (12.0-16.0); MEAN CORPUSCULAR VOLUME 100 FL (80-99); PLATELET COUNT 102 K/UL (150-450); RED BLOOD COUNT 2.15 M/UL (4.20-5.40); WHITE BLOOD COUNT 5.5 K/UL (4.8-10.8)
[2018-01-10 22:10] LABS: LYMPHOCYTES % (AUTO) 26.8 % (20.0-45.0); NEUTROPHILS % (AUTO) 62.9 % (45.0-75.0)
[2018-01-10 22:11] LABS: BASOPHILS % (AUTO) 0.7 % (0.0-2.0); EOSINOPHILS % (AUTO) 1.4 % (0.0-3.0); MONOCYTES % (AUTO) 8.1 % (1.0-10.0)
[2018-01-11] VITALS: BP 111/69
[2018-01-11] MEDS: D5 1/2NS w/KCl 20mEq 1,000 ML IV SCH ×3 (02:38→17:09)
[2018-01-11 04:00] VITALS: BP 109/82
[2018-01-11 08:00] VITALS: BP 123/49
[2018-01-11 08:00] LABS: BASOPHILS % (AUTO) 0.4 % (0.0-2.0); EOSINOPHILS % (AUTO) 0.1 % (0.0-3.0); HEMATOCRIT 27.5 % (37.0-47.0); LYMPHOCYTES % (AUTO) 9.3 % (20.0-45.0); MEAN CORPUSCULAR VOLUME 102 FL (80-99); MONOCYTES % (AUTO) 5.7 % (1.0-10.0); NEUTROPHILS % (AUTO) 84.5 % (45.0-75.0); PLATELET COUNT 147 K/UL (150-450); RED BLOOD COUNT 2.71 M/UL (4.20-5.40); RED CELL DISTRIBUTION WIDTH 16.1 % (11.6-14.8); WHITE BLOOD COUNT 5.6 K/UL (4.8-10.8)
--- NOTE | 2018-01-11 08:44 | General Progress Note ---
Assessment/Plan Problem List: (1) Anemia ICD Codes: D64.9 - Anemia, unspecified SNOMED: 798562681 Qualifiers: Qualified Codes: D64.9 - Anemia, unspecified (2) CKD (chronic kidney disease) ICD Codes: N18.9 - Chronic kidney disease, unspecified SNOMED: 160786483 Qualifiers: Qualified Codes: N18.9 - Chronic kidney disease, unspecified (3) Intertrochanteric fracture of right femur ICD Codes: S72.141A - Displaced intertrochanteric fracture of right femur, initial encounter for closed fracture SNOMED: 536847916 Qualifiers: Qualified Codes: S72.141A - Displaced intertrochanteric fracture of right femur, initial encounter for closed fracture (4) Hip fracture, right ICD Codes: S72.001A - Fracture of unspecified part of neck of right femur, initial encounter for closed fracture SNOMED: 420746830 Status: stable, progressing Assessment/Plan monitor for bleeding monitor h/h transfuse dvt prophylaxis with scd holding xarelto lovenox for few days skin care cont current rx Subjective ROS Limited/Unobtainable: No Constitutional: Reports: malaise, weakness HEENT: Reports: no symptoms Cardiovascular: Reports: no symptoms Respiratory: Reports: no symptoms Gastrointestinal/Abdominal: Reports: no symptoms Genitourinary: Reports: no symptoms Neurologic/Psychiatric: Reports: no symptoms Endocrine: Reports: no symptoms Hematologic/Lymphatic: Reports: no symptoms Allergies: Coded Allergies: No Known Allergies (Unverified , 01/07/18) All Systems: reviewed and negative except above Subjective s/p 1 unit prbc. no bleeding noted. h/h better after transfusion. Objective Last 24 Hour Vital Signs Date Time Temp Pulse Resp B/P (MAP) Pulse Ox O2 Delivery O2 Flow Rate FiO2 01/11/18 04:00 75 01/11/18 04:00 96.5 63 18 109/82 (91) 98 96.5 01/11/18 00:00 67 01/11/18 00:00 97.4 59 22 111/69 (83) 97 97.4 01/10/18 21:00 Room Air 01/10/18 20:00 98.2 64 19 103/47 (65) 96 98.2 01/10/18 20:00 65 01/10/18 16:00 98.4 66 20 99/54 (69) 97 98.4 01/10/18 15:21 68 01/10/18 12:15 98.4 01/10/18 12:14 63 01/10/18 12:00 98.4 64 20 112/44 (66) 95 98.4 01/10/18 11:16 97.9 01/10/18 09:00 Room Air Intake and Output 01/10/18 01/11/18 19:00 07:00 Intake Total 415 ml 562 ml Output Total 950 ml Balance -535 ml 562 ml Intake Oral 340 ml IV Total 75 ml 562 ml Output Urine Total 950 ml # Voids 2 # Bowel Movements 2 Laboratory Tests 01/10/18 22:02: White Blood Count 5.5, Red Blood Count 2.15L, Hemoglobin 7.2L, Hematocrit 21.4L , Mean Corpuscular Volume 100#H, Mean Corpuscular Hemoglobin 33.4H, Mean Corpuscular Hemoglobin Concent 33.5, Red Cell Distribution Width 16.0H, Platelet Count 102L, Mean Platelet Volume 6.3L, Neutrophils (%) (Auto) 62.9, Lymphocytes (%) (Auto) 26.8, Monocytes (%) (Auto) 8.1, Eosinophils (%) (Auto) 1.4, Basophils (%) (Auto) 0.7 01/11/18 06:20: White Blood Count 5.6, Red Blood Count 2.71L, Hemoglobin 9.0L, Hematocrit 27.5L , Mean Corpuscular Volume 102H, Mean Corpuscular Hemoglobin 33.2H, Mean Corpuscular Hemoglobin Concent 32.7, Red Cell Distribution Width 16.1H, Platelet Count 147L, Mean Platelet Volume 6.6, Neutrophils (%) (Auto) 84.5H, Lymphocytes (%) (Auto) 9.3L, Monocytes (%) (Auto) 5.7, Eosinophils (%) (Auto) 0.1, Basophils (%) (Auto) 0.4 Height (Feet): 5 Height (Inches): 0.00 Weight (Pounds): 160 Objective General Appearance: WD/WN, alert Neck: supple Cardiovascular: normal rate, regular rhythm Respiratory/Chest: chest wall non-tender, lungs clear Abdomen: normal bowel sounds, non tender, soft, no organomegaly Edema: no edema noted Arm (L), no edema noted Arm (R), no edema noted Leg (L), no edema noted Leg (R), no edema noted Pedal (L), no edema noted Pedal (R), no edema noted Generalized Anupam Byers MD Jan 11, 2018 08:44
[2018-01-11] MEDS ORDERED: Enoxaparin 30mg Inj SUBQ SCH (09:00)
[2018-01-11] MEDS: Docusate 100mg/10ml Liq ORAL SCH ×2 (09:16→21:15)
[2018-01-11] MEDS: Ferrous Sulfate 300 MG/5 ML UDC ORAL SCH ×2 (09:16→21:16)
[2018-01-11] MEDS: Calcium Carbonate 500mg w/Vit D 200iu tab ORAL SCH (09:17)
[2018-01-11] MEDS: Amiodarone 200mg tab ORAL SCH (09:17)
[2018-01-11 12:00] VITALS: BP 104/59
[2018-01-11] MEDS ORDERED: Solu-MEDROL 40mg Inj IVP SCH (12:00)
[2018-01-11] MEDS ORDERED: Albuterol/Ipratropium 3ml neb HHN SCH (12:00)
--- NOTE | 2018-01-11 12:59 | Cardiology Progress Note ---
Assessment/Plan Assessment/Plan 1. s/p right hip ORIF, POD #3, no richard-operative cardiac events, continue Eliquis. 2. History of sick sinus syndrome, status post dual-chamber pacemaker implantation. 3. Paroxysmal atrial fibrillation, in SR, continue amiodarone. 4. History of osteoporosis. 5. History of dyslipidemia. 6. History of chronic kidney disease. 7. History of anemia of chronic disease. Subjective Subjective Sinus rhythm at 84. Objective Last 24 Hour Vital Signs Date Time Temp Pulse Resp B/P (MAP) Pulse Ox O2 Delivery O2 Flow Rate FiO2 01/11/18 12:40 85 34 99 Nasal Cannula 2.0 28 01/11/18 12:27 84 32 99 Nasal Cannula 2.0 28 01/11/18 12:27 84 32 Nasal Cannula 2.0 28 01/11/18 12:00 68 01/11/18 12:00 97.8 84 31 104/59 (74) 97 97.8 01/11/18 10:39 98.8 01/11/18 09:17 100.9 01/11/18 09:00 Room Air 01/11/18 08:00 69 01/11/18 08:00 100.9 73 29 123/49 (73) 96 100.9 01/11/18 04:00 75 01/11/18 04:00 96.5 63 18 109/82 (91) 98 96.5 01/11/18 00:00 67 01/11/18 00:00 97.4 59 22 111/69 (83) 97 97.4 01/10/18 21:00 Room Air 01/10/18 20:00 98.2 64 19 103/47 (65) 96 98.2 01/10/18 20:00 65 01/10/18 16:00 98.4 66 20 99/54 (69) 97 98.4 01/10/18 15:21 68 Intake and Output 01/10/18 01/11/18 19:00 07:00 Intake Total 415 ml 562 ml Output Total 950 ml Balance -535 ml 562 ml Intake Oral 340 ml IV Total 75 ml 562 ml Output Urine Total 950 ml # Voids 2 # Bowel Movements 2 2D Echo: EF 55-60%, Grade I LVDD, RVSP 46 mmHg Laboratory Tests Test 01/10/18 22:02 01/11/18 06:20 01/11/18 10:41 White Blood Count 5.5 K/UL (4.8-10.8) 5.6 K/UL (4.8-10.8) Red Blood Count 2.15 M/UL (4.20-5.40) L 2.71 M/UL (4.20-5.40) L Hemoglobin 7.2 G/DL (12.0-16.0) L 9.0 G/DL (12.0-16.0) L Hematocrit 21.4 % (37.0-47.0) L 27.5 % (37.0-47.0) L Mean Corpuscular Volume 100 FL (80-99) #H 102 FL (80-99) H Mean Corpuscular Hemoglobin 33.4 PG (27.0-31.0) H 33.2 PG (27.0-31.0) H Mean Corpuscular Hemoglobin Concent 33.5 G/DL (32.0-36.0) 32.7 G/DL (32.0-36.0) Red Cell Distribution Width 16.0 % (11.6-14.8) H 16.1 % (11.6-14.8) H Platelet Count 102 K/UL (150-450) L 147 K/UL (150-450) L Mean Platelet Volume 6.3 FL (6.5-10.1) L 6.6 FL (6.5-10.1) Neutrophils (%) (Auto) 62.9 % (45.0-75.0) 84.5 % (45.0-75.0) H Lymphocytes (%) (Auto) 26.8 % (20.0-45.0) 9.3 % (20.0-45.0) L Monocytes (%) (Auto) 8.1 % (1.0-10.0) 5.7 % (1.0-10.0) Eosinophils (%) (Auto) 1.4 % (0.0-3.0) 0.1 % (0.0-3.0) Basophils (%) (Auto) 0.7 % (0.0-2.0) 0.4 % (0.0-2.0) Arterial Blood pH 7.400 (7.350-7.450) Arterial Blood Partial Pressure CO2 30.6 mmHg (35.0-45.0) L Arterial Blood Partial Pressure O2 72.0 mmHg (75.0-100.0) L Arterial Blood HCO3 18.8 mmol/L (22.0-26.0) L Arterial Blood Oxygen Saturation 94.0 % (92.0-98.0) Arterial Blood Base Excess -5.1 Robin Test Positive Objective HEENT: Atraumatic and normocephalic. EENT: Pupils are equal, round, and reactive to light and accommodation. Extraocular muscles intact. NECK: JVP less than 5 cm. No carotid bruit. Carotid upstroke is 2+ bilaterally. CVS: Normal S1 and S2. Regular rate and rhythm. No murmurs, gallops, or rubs. Pacemaker pocket in the left pectoral area is visible. LUNGS: Clear to auscultation bilaterally. ABDOMEN: Soft, nontender, and nondistended. No hepatosplenomegaly. Positive bowel sounds. EXTREMITIES: No evidence of edema, clubbing, or cyanosis. Pro Yo MD Jan 11, 2018 12:59
--- NOTE | 2018-01-11 13:31 | Diagnostic Imaging Report ---
Indication: Dyspnea Technique: XRAY Chest 1v Comparison: 01/10/2018 Findings: Stable cardiomegaly. Pacemaker unchanged in position. Osseous structures are stable, including evidence of prior kyphoplasty is. There is persistent interstitial opacification/edema with slight interval increase in patchy perihilar airspace opacities. Possible trace bilateral pleural effusions. No definite pneumothorax. Impression: Cardiomegaly with interstitial opacification/edema and subtle patchy perihilar opacification, slightly increased compared to one day prior. Findings may be related to CHF/fluid overload. Correlate clinically.
[2018-01-11] MEDS ORDERED: D5NS 1000ml IV ONE (14:48)
[2018-01-11 16:06] VITALS: BP 102/68
[2018-01-11] MEDS: Albuterol/Ipratropium 3ml neb HHN SCH ×3 (17:27→22:53)
[2018-01-11 20:00] VITALS: BP 96/59
[2018-01-11] MEDS: Atorvastatin 20mg tab ORAL SCH (21:16)
[2018-01-11] MEDS: Epogen (for ESRD on dialysis) SUBQ SCH (21:16)
--- NOTE | 2018-01-11 23:45 | Consultation ---
DATE OF CONSULTATION: 01/11/2018 PULMONARY CONSULTATION CONSULTING PHYSICIAN: Roverto Abraham M.D. REASON FOR EVALUATION: Shortness of breath. HISTORY OF PRESENT ILLNESS: This is an 87-year-old male, who is status post right hip intertrochanteric fracture. The patient underwent surgery on 01/08/2018. The patient has been more short of breath. Review of the medications, the patient had been apixaban for DVT prophylaxis, which was discontinued on 01/10/2018. The patient's care discussed and reviewed with the primary care doctor. The patient apparently had been anemic and required transfusion and as a result had sequential stockings placed and anticoagulation was held. The patient had been noted to be more short of breath and started on steroids. The patient is a fair historian. The patient also noted to have some fevers and tachypnea and therapy was initiated. I was called to evaluate and recommend further. At present, the patient had not been anticoagulated due to the above. PAST MEDICAL HISTORY: Notable for conduction system defect, pacemaker, hypertension, chronic kidney disease, and history of renal cell cancer and as above. MEDICATIONS: Reviewed. ALLERGIES: Reviewed. SOCIAL HISTORY: Nonsmoker and nondrinker. The patient is retired and disabled. REVIEW OF SYSTEMS: Difficult to obtain at present. PHYSICAL EXAMINATION: GENERAL: A well-developed male, somewhat tachypneic at present. VITAL SIGNS: T-max 100.9, respiratory rate 34, heart rate 85, and saturations 99% on 2 liters. HEENT: Overall negative. NECK: Supple. LUNGS: The patient appears to be somewhat tachypneic with minimal wheezes. CARDIAC: Normal S1 and S2. Regular rate and rhythm without murmurs, rubs, or gallops. ABDOMEN: Soft, nontender, and nondistended. EXTREMITIES: No significant edema. Some reduction in range of motion. LABORATORY DATA: Lab date reviewed. ABG 7.40, 32, and 218. Chemistries - BUN 27 and creatinine 2, otherwise, negative. CBC - white count 5.6, hemoglobin 9, hematocrit 27, and platelets are 147,000. The x-ray done as of 01/11/2018, cardiomegaly with some possibly mild fluid overload. IMPRESSION: 1. Tachypnea. 2. Shortness of breath. 3. Respiratory insufficiency. 4. Status post open reduction and internal fixation. 5. Anemia, status post transfusion. RECOMMENDATIONS: Agree with swallow evaluation. Agree with nebulized therapy. Lasix has been given as of this morning. We will assess for improvement. Stat duplex has been ordered to rule out DVT. The patient, however, has been on DVT prophylaxis, and thereafter, has been on sequential stockings. We will monitor clinically and recommend. Monitor fluid status. Monitor BNP and low threshold for high-level care. Discussed and recommended further. Roverto Abraham M.D. DR: LEONID JOB#: [id number] CC:
[2018-01-12] VITALS: BP 104/55
[2018-01-12] MEDS: Albuterol/Ipratropium 3ml neb HHN SCH ×6 (02:52→23:52)
[2018-01-12 04:16] VITALS: BP 125/61
[2018-01-12] MEDS: D5 1/2NS w/KCl 20mEq 1,000 ML IV SCH ×2 (06:20→19:40)
[2018-01-12] MEDS: HYDROcodone/Acetamin 7.5/325 tab ORAL PRN (07:03)
[2018-01-12 07:56] LABS: HEMATOCRIT 22.2 % (37.0-47.0); HEMOGLOBIN 7.4 G/DL (12.0-16.0); MEAN CORPUSCULAR VOLUME 101 FL (80-99); PLATELET COUNT 138 K/UL (150-450); RED BLOOD COUNT 2.21 M/UL (4.20-5.40); RED CELL DISTRIBUTION WIDTH 15.3 % (11.6-14.8); WHITE BLOOD COUNT 8.9 K/UL (4.8-10.8)
[2018-01-12 08:00] VITALS: BP 95/47
--- NOTE | 2018-01-12 09:39 | Pulmonology Progress Note ---
Assessment/Plan Assessment/Plan IMPRESSION: 1. Tachypnea. 2. Shortness of breath. 3. Respiratory insufficiency. 4. Status post open reduction and internal fixation. 5. Anemia, status post transfusion. PLAN respiratory care check Venous US respiratory care oxygen off solumedrol monitor fluid status impression, plan, and exam edited and reviewed in detail care discussed with RN Subjective Allergies: Coded Allergies: No Known Allergies (Unverified , 01/07/18) Subjective care noted ABG noted results reviewed Objective Last 24 Hour Vital Signs Date Time Temp Pulse Resp B/P (MAP) Pulse Ox O2 Delivery O2 Flow Rate FiO2 01/12/18 08:54 92 20 99 Nasal Cannula 2.0 01/12/18 08:37 91 20 98 Nasal Cannula 2.0 01/12/18 04:17 86 01/12/18 04:16 97.0 83 21 125/61 (82) 96 97.0 01/12/18 02:53 78 18 98 Nasal Cannula 2.0 01/12/18 02:45 68 22 98 Nasal Cannula 2.0 01/12/18 00:00 97.0 88 21 104/55 (71) 98 97.0 01/11/18 23:59 88 01/11/18 22:51 89 24 98 Nasal Cannula 2.0 01/11/18 22:45 89 24 98 Nasal Cannula 2.0 01/11/18 21:00 Nasal Cannula 2.0 01/11/18 20:00 97.3 87 25 96/59 (71) 99 97.3 01/11/18 19:37 85 01/11/18 19:03 82 20 99 Nasal Cannula 2.0 01/11/18 18:55 77 22 99 Nasal Cannula 2.0 01/11/18 17:41 89 24 99 Nasal Cannula 2.0 01/11/18 17:27 86 24 99 Nasal Cannula 2.0 01/11/18 16:06 97.9 70 26 102/68 (79) 97 97.9 01/11/18 16:00 72 01/11/18 12:40 85 34 99 Nasal Cannula 2.0 28 01/11/18 12:27 84 32 99 Nasal Cannula 2.0 01/11/18 12:27 84 32 Nasal Cannula 2.0 28 01/11/18 12:00 68 01/11/18 12:00 97.8 84 31 104/59 (74) 97 97.8 01/11/18 10:39 98.8 Intake and Output 01/11/18 01/12/18 19:00 07:00 Output Total 1100 ml 1600 ml Balance -1100 ml -1600 ml Output Urine Total 1100 ml 1600 ml Objective GENERAL: A well-developed male, NAD HEENT: Overall negative. NECK: Supple. LUNGS: moderate air entry with minimal wheezes. CARDIAC: Normal S1 and S2. Regular rate and rhythm without murmurs, rubs, or gallops. ABDOMEN: Soft, nontender, and nondistended. EXTREMITIES: No significant edema. Some reduction in range of motion. Microbiology Date/Time Source Procedure Growth Status 01/10/18 08:00 Blood Gram Stain - Final Resulted 01/10/18 08:00 Blood Aerobic Culture - Preliminary NO GROWTH AFTER 48 HOURS Resulted Laboratory Tests 01/11/18 10:41: Arterial Blood pH 7.400, Arterial Blood Partial Pressure CO2 30.6L, Arterial Blood Partial Pressure O2 72.0L, Arterial Blood HCO3 18.8L, Arterial Blood Oxygen Saturation 94.0, Arterial Blood Base Excess -5.1, Robin Test Positive 01/11/18 23:20: Arterial Blood pH 7.389, Arterial Blood Partial Pressure CO2 31.3L, Arterial Blood Partial Pressure O2 118.4H, Arterial Blood HCO3 18.5L, Arterial Blood Oxygen Saturation 97.9, Arterial Blood Base Excess -5.8, Robin Test Positive 01/12/18 06:20: White Blood Count 8.9#, Red Blood Count 2.21L, Hemoglobin 7.4L, Hematocrit 22.2L , Mean Corpuscular Volume 101H, Mean Corpuscular Hemoglobin 33.7H, Mean Corpuscular Hemoglobin Concent 33.5, Red Cell Distribution Width 15.3H, Platelet Count 138L, Mean Platelet Volume 6.8, Neutrophils (%) (Auto) , Lymphocytes (%) (Auto) , Monocytes (%) (Auto) , Eosinophils (%) (Auto) , Basophils (%) (Auto) , Neutrophils % (Manual) [Pending], Lymphocytes % (Manual) [Pending], Platelet Estimate [Pending], Platelet Morphology [Pending] Current Medications Medications (Trade) Dose Ordered Sig/Kiya Route PRN Reason Start Time Stop Time Status Last Admin Dose Admin Acetaminophen (Tylenol) 650 mg Q4H PRN ORAL Mild Pain (Pain Scale 1-3) 01/10/18 01:30 02/07/18 17:29 01/10/18 11:16 Acetaminophen (Tylenol) 650 mg Q4H PRN ORAL temp>100 01/10/18 01:30 02/07/18 17:29 01/11/18 09:17 Acetaminophen/ Hydrocodone Bitart ([place] 5/325) 2 tab Q6H PRN ORAL Severe Pain (Pain Scale 7-10) 01/10/18 03:00 01/15/18 14:59 Acetaminophen/ Hydrocodone Bitart ([place] 7.5/325) 1 tab Q4H PRN ORAL Moderate Pain (Pain Scale 4-6) 01/10/18 03:00 01/15/18 14:59 01/12/18 07:03 Albuterol/ Ipratropium (Albuterol/ Ipratropium) 3 ml Q4HRT HHN 01/11/18 15:00 01/16/18 14:59 01/12/18 08:37 Alendronate Sodium (Fosamax) 70 mg ONCE A WEEK ORAL 01/10/18 06:00 02/09/18 05:59 01/10/18 06:06 Amiodarone HCl (Cordarone) 200 mg DAILY ORAL 01/10/18 09:00 02/07/18 08:59 01/11/18 09:17 Atorvastatin Calcium (Lipitor) 20 mg BEDTIME ORAL 01/10/18 21:00 02/06/18 20:59 01/11/18 21:16 Bisacodyl (Dulcolax) 10 mg DAILYPRN PRN RECTAL Constipation 01/10/18 13:00 02/06/18 12:59 Calcium Carbonate (OsCal D) 1 tab DAILY ORAL 01/10/18 09:00 02/07/18 08:59 01/11/18 09:17 Dextrose/ Electrolytes 1,000 ml @ 75 mls/hr [id number] IV 01/10/18 01:00 02/07/18 17:59 01/11/18 02:38 Docusate Sodium (Colace) 100 mg Q12HR ORAL 01/10/18 21:00 02/08/18 20:59 01/11/18 21:15 Epoetin Oli (Procrit (for ESRD on dialysis)) 10,000 units SUN-SUN-SUN SUBQ 01/11/18 21:00 02/10/18 20:59 01/11/18 21:16 Ferrous Sulfate (Feosol) 300 mg Q12HR ORAL 01/10/18 21:00 02/08/18 20:59 01/11/18 21:16 Folic Acid (Folate) 1 mg DAILY ORAL 01/10/18 09:00 02/07/18 08:59 01/11/18 09:16 Gabapentin (Neurontin) 100 mg THREE TIMES A DAY ORAL 01/10/18 09:00 02/06/18 12:59 01/11/18 18:31 Lactulose (Cephulac) 20 gm DAILY PRN ORAL Constipation 01/10/18 09:00 02/06/18 12:59 Magnesium Hydroxide (Mom) 30 ml DAILYPRN PRN ORAL Constipation 01/10/18 15:00 02/07/18 14:59 01/11/18 02:34 Morphine Sulfate (Morphine Sulfate) 1 mg Q3H PRN IVP Pain scale 1-3 01/10/18 03:00 01/15/18 14:59 Ondansetron HCl (Zofran) 4 mg Q8H PRN IVP Nausea & Vomiting 01/10/18 07:00 02/07/18 14:59 Solifenacin (Vesicare) 5 mg DAILY ORAL 01/10/18 09:00 02/07/18 08:59 01/11/18 09:16 Roverto Abraham MD Jan 12, 2018 09:39
[2018-01-12] MEDS: Docusate 100mg/10ml Liq ORAL SCH ×2 (10:12→21:41)
[2018-01-12] MEDS: Ferrous Sulfate 300 MG/5 ML UDC ORAL SCH ×2 (10:12→21:41)
[2018-01-12] MEDS: Calcium Carbonate 500mg w/Vit D 200iu tab ORAL SCH (10:13)
[2018-01-12] MEDS: Amiodarone 200mg tab ORAL SCH (10:13)
--- NOTE | 2018-01-12 10:28 | General Progress Note ---
Assessment/Plan Problem List: (1) Anemia ICD Codes: D64.9 - Anemia, unspecified SNOMED: 805121402 Qualifiers: Qualified Codes: D64.9 - Anemia, unspecified (2) CKD (chronic kidney disease) ICD Codes: N18.9 - Chronic kidney disease, unspecified SNOMED: 448476917 Qualifiers: Qualified Codes: N18.9 - Chronic kidney disease, unspecified (3) Intertrochanteric fracture of right femur ICD Codes: S72.141A - Displaced intertrochanteric fracture of right femur, initial encounter for closed fracture SNOMED: 207803341 Qualifiers: Qualified Codes: S72.141A - Displaced intertrochanteric fracture of right femur, initial encounter for closed fracture (4) Hip fracture, right ICD Codes: S72.001A - Fracture of unspecified part of neck of right femur, initial encounter for closed fracture SNOMED: 228293701 Status: stable Assessment/Plan monitor for bleeding monitor h/h transfuse dvt prophylaxis with scd holding xarelto lovenox for few days skin care cont current rx Subjective ROS Limited/Unobtainable: No Constitutional: Reports: malaise, weakness HEENT: Reports: no symptoms Cardiovascular: Reports: no symptoms Respiratory: Reports: no symptoms Gastrointestinal/Abdominal: Reports: no symptoms Genitourinary: Reports: no symptoms Neurologic/Psychiatric: Reports: no symptoms Endocrine: Reports: no symptoms Hematologic/Lymphatic: Reports: anemia Allergies: Coded Allergies: No Known Allergies (Unverified , 01/07/18) All Systems: reviewed and negative except above Subjective increased sob yesterday. cxr with chf. better after iv lasix. h/h low again today Objective Last 24 Hour Vital Signs Date Time Temp Pulse Resp B/P (MAP) Pulse Ox O2 Delivery O2 Flow Rate FiO2 01/12/18 08:54 92 20 99 Nasal Cannula 2.0 28 01/12/18 08:37 91 20 98 Nasal Cannula 2.0 01/12/18 04:17 86 01/12/18 04:16 97.0 83 21 125/61 (82) 96 97.0 01/12/18 02:53 78 18 98 Nasal Cannula 2.0 28 01/12/18 02:45 68 22 98 Nasal Cannula 2.0 28 01/12/18 00:00 97.0 88 21 104/55 (71) 98 97.0 7/13/18 23:59 88 01/11/18 22:51 89 24 98 Nasal Cannula 2.0 28 01/11/18 22:45 89 24 98 Nasal Cannula 2.0 28 01/11/18 21:00 Nasal Cannula 2.0 01/11/18 20:00 97.3 87 25 96/59 (71) 99 97.3 01/11/18 19:37 85 01/11/18 19:03 82 20 99 Nasal Cannula 2.0 28 01/11/18 18:55 77 22 99 Nasal Cannula 2.0 28 01/11/18 17:41 89 24 99 Nasal Cannula 2.0 28 01/11/18 17:27 86 24 99 Nasal Cannula 2.0 28 01/11/18 16:06 97.9 70 26 102/68 (79) 97 97.9 01/11/18 16:00 72 01/11/18 12:40 85 34 99 Nasal Cannula 2.0 28 01/11/18 12:27 84 32 99 Nasal Cannula 2.0 28 01/11/18 12:27 84 32 Nasal Cannula 2.0 28 01/11/18 12:00 68 01/11/18 12:00 97.8 84 31 104/59 (74) 97 97.8 01/11/18 10:39 98.8 Intake and Output 01/11/18 01/12/18 19:00 07:00 Output Total 1100 ml 1600 ml Balance -1100 ml -1600 ml Output Urine Total 1100 ml 1600 ml Laboratory Tests 01/11/18 10:41: Arterial Blood pH 7.400, Arterial Blood Partial Pressure CO2 30.6L, Arterial Blood Partial Pressure O2 72.0L, Arterial Blood HCO3 18.8L, Arterial Blood Oxygen Saturation 94.0, Arterial Blood Base Excess -5.1, Robin Test Positive 01/11/18 23:20: Arterial Blood pH 7.389, Arterial Blood Partial Pressure CO2 31.3L, Arterial Blood Partial Pressure O2 118.4H, Arterial Blood HCO3 18.5L, Arterial Blood Oxygen Saturation 97.9, Arterial Blood Base Excess -5.8, Robin Test Positive 01/12/18 06:20: White Blood Count 8.9#, Red Blood Count 2.21L, Hemoglobin 7.4L, Hematocrit 22.2L , Mean Corpuscular Volume 101H, Mean Corpuscular Hemoglobin 33.7H, Mean Corpuscular Hemoglobin Concent 33.5, Red Cell Distribution Width 15.3H, Platelet Count 138L, Mean Platelet Volume 6.8, Neutrophils (%) (Auto) , Lymphocytes (%) (Auto) , Monocytes (%) (Auto) , Eosinophils (%) (Auto) , Basophils (%) (Auto) , Differential Total Cells Counted 100, Neutrophils % ( Manual) 93H, Lymphocytes % (Manual) 6L, Monocytes % (Manual) 1, Eosinophils % ( Manual) 0, Basophils % (Manual) 0, Band Neutrophils 0, Platelet Estimate DecreasedL, Platelet Morphology Normal, Anisocytosis 1+ Height (Feet): 5 Height (Inches): 0.00 Weight (Pounds): 160 Objective General Appearance: WD/WN, alert Neck: supple Cardiovascular: normal rate, regular rhythm Respiratory/Chest: chest wall non-tender, lungs clear Abdomen: normal bowel sounds, non tender, soft, no organomegaly Edema: no edema noted Arm (L), no edema noted Arm (R), no edema noted Leg (L), no edema noted Leg (R), no edema noted Pedal (L), no edema noted Pedal (R), no edema noted Generalized Anupam Byers MD Jan 12, 2018 10:28
[2018-01-12 12:00] VITALS: BP 101/53
[2018-01-12 16:00] VITALS: BP 101/60
[2018-01-12 17:56] LABS: HEMOGLOBIN 8.7 G/DL (12.0-16.0); MEAN CORPUSCULAR VOLUME 97 FL (80-99); PLATELET COUNT 130 K/UL (150-450); RED BLOOD COUNT 2.59 M/UL (4.20-5.40); RED CELL DISTRIBUTION WIDTH 14.6 % (11.6-14.8); WHITE BLOOD COUNT 11.5 K/UL (4.8-10.8)
[2018-01-12 20:00] VITALS: BP 101/52
[2018-01-12] MEDS ORDERED: Eliquis 2.5mg tablet ORAL SCH (21:00)
--- NOTE | 2018-01-12 21:19 | Cardiology Report ---
APPROVED REPORT EXAM: Two-dimensional and M-mode echocardiogram with Doppler and color Doppler. INDICATION Bradycardia M-Mode DIMENSIONS IVSd0.8 (0.7-1.1cm)Left Atrium (MM)3.5 (1.6-4.0cm) LVDd4.3 (3.5-5.6cm)Aortic Root2.7 (2.0-3.7cm) PWd1.0 (0.7-1.1cm)Aortic Cusp Exc.1.6 (1.5-2.0cm) LVDs3.1 (2.5-4.0cm) PWs0.8 cm Normal left ventricular chamber size, systolic function and wall motion. Left ventricular ejection fraction estimated to be 55-60%. No evidence of left ventricular hypertrophy. No evidence of pericardial or pleural effusion. Right cardiac chamber sizes are within normal limits. Mild left atrial enlargement by 2D. Focal aortic valve sclerosis with adequate cusp excursion. Thickened mitral valve leaflets with normal excursion. Mild mitral annulus and aortic root calcification. Pulmonic valve not well visualized. Normal tricuspid valve structure. IVC is not obtainable. A color flow and spectral Doppler study was performed and revealed: Mild aortic regurgitation. Trace mitral regurgitation. Mitral diastolic velocities suggest reduced left ventricular relaxation c/w diastolic dysfunction grade 1. Moderate tricuspid regurgitation. Tricuspid systolic velocities suggests peak right ventricular systolic pressure of 46 mmHg Consistent with moderate pulmonary hypertension. Pulmonic regurgitation present.
[2018-01-12] MEDS: Atorvastatin 20mg tab ORAL SCH (21:42)
--- NOTE | 2018-01-12 23:01 | Cardiology Progress Note ---
Assessment/Plan Assessment/Plan 1. s/p Right hip ORIF, POD #4, no richard-operative cardiac events, continue Eliquis. 2. History of sick sinus syndrome, status post dual-chamber pacemaker implantation. 3. Paroxysmal atrial fibrillation, in SR, continue amiodarone. 4. History of dyslipidemia. 5. History of chronic kidney disease with associated anemia, s/p blood transfusion. Subjective Subjective Sinus rhythm at 87. Objective Last 24 Hour Vital Signs Date Time Temp Pulse Resp B/P (MAP) Pulse Ox O2 Delivery O2 Flow Rate FiO2 01/12/18 21:01 87 20 98 Nasal Cannula 2.0 28 01/12/18 21:00 Nasal Cannula 2.0 01/12/18 20:47 81 20 97 Nasal Cannula 2.0 28 01/12/18 20:00 97.8 82 20 101/52 (68) 100 97.8 01/12/18 19:06 82 01/12/18 16:09 80 20 100 Nasal Cannula 2.0 28 01/12/18 16:00 80 01/12/18 16:00 98.2 82 20 101/60 (74) 100 98.2 01/12/18 15:57 76 20 99 Nasal Cannula 2.0 28 01/12/18 13:26 92 20 96 Nasal Cannula 2.0 28 01/12/18 13:23 81 20 99 Nasal Cannula 2.0 28 01/12/18 12:00 86 01/12/18 12:00 97.5 81 22 101/53 (69) 100 97.5 01/12/18 09:00 Nasal Cannula 2.0 01/12/18 08:54 92 20 99 Nasal Cannula 2.0 28 01/12/18 08:37 91 20 98 Nasal Cannula 2.0 28 01/12/18 08:00 97.2 86 20 95/47 (63) 100 97.2 01/12/18 08:00 85 01/12/18 04:17 86 01/12/18 04:16 97.0 83 21 125/61 (82) 96 97.0 01/12/18 02:53 78 18 98 Nasal Cannula 2.0 28 01/12/18 02:45 68 22 98 Nasal Cannula 2.0 28 01/12/18 00:00 97.0 88 21 104/55 (71) 98 97.0 01/11/18 23:59 88 Intake and Output 01/11/18 01/12/18 19:00 07:00 Output Total 1100 ml 1600 ml Balance -1100 ml -1600 ml Output Urine Total 1100 ml 1600 ml 2D Echo: EF 55-60%, Grade I LVDD, RVSP 46 mmHg Laboratory Tests Test 01/11/18 23:20 01/12/18 06:20 01/12/18 17:07 Arterial Blood pH 7.389 (7.350-7.450) Arterial Blood Partial Pressure CO2 31.3 mmHg (35.0-45.0) L Arterial Blood Partial Pressure O2 118.4 mmHg (75.0-100.0) H Arterial Blood HCO3 18.5 mmol/L (22.0-26.0) L Arterial Blood Oxygen Saturation 97.9 % (92.0-98.0) Arterial Blood Base Excess -5.8 Robin Test Positive White Blood Count 8.9 K/UL (4.8-10.8) # 11.5 K/UL (4.8-10.8) H Red Blood Count 2.21 M/UL (4.20-5.40) L 2.59 M/UL (4.20-5.40) L Hemoglobin 7.4 G/DL (12.0-16.0) L 8.7 G/DL (12.0-16.0) L Hematocrit 22.2 % (37.0-47.0) L 25.0 % (37.0-47.0) L Mean Corpuscular Volume 101 FL (80-99) H 97 FL (80-99) Mean Corpuscular Hemoglobin 33.7 PG (27.0-31.0) H 33.7 PG (27.0-31.0) H Mean Corpuscular Hemoglobin Concent 33.5 G/DL (32.0-36.0) 34.9 G/DL (32.0-36.0) Red Cell Distribution Width 15.3 % (11.6-14.8) H 14.6 % (11.6-14.8) Platelet Count 138 K/UL (150-450) L 130 K/UL (150-450) L Mean Platelet Volume 6.8 FL (6.5-10.1) 6.3 FL (6.5-10.1) L Neutrophils (%) (Auto) % (45.0-75.0) % (45.0-75.0) Lymphocytes (%) (Auto) % (20.0-45.0) % (20.0-45.0) Monocytes (%) (Auto) % (1.0-10.0) % (1.0-10.0) Eosinophils (%) (Auto) % (0.0-3.0) % (0.0-3.0) Basophils (%) (Auto) % (0.0-2.0) % (0.0-2.0) Differential Total Cells Counted 100 100 Neutrophils % (Manual) 93 % (45-75) H 83 % (45-75) H Lymphocytes % (Manual) 6 % (20-45) L 11 % (20-45) L Monocytes % (Manual) 1 % (1-10) 5 % (1-10) Eosinophils % (Manual) 0 % (0-3) 0 % (0-3) Basophils % (Manual) 0 % (0-2) 0 % (0-2) Band Neutrophils 0 % (0-8) 1 % (0-8) Platelet Estimate Decreased L Decreased L Platelet Morphology Normal Normal Anisocytosis 1+ 1+ Hypochromasia 1+ Microbiology Date/Time Source Procedure Growth Status 01/10/18 08:00 Blood Gram Stain - Final Resulted 01/10/18 08:00 Blood Aerobic Culture - Preliminary NO GROWTH AFTER 48 HOURS Resulted Objective HEENT: Atraumatic and normocephalic. EENT: Pupils are equal, round, and reactive to light and accommodation. Extraocular muscles intact. NECK: JVP less than 5 cm. No carotid bruit. Carotid upstroke is 2+ bilaterally. CVS: Normal S1 and S2. Regular rate and rhythm. No murmurs, gallops, or rubs. Pacemaker pocket in the left pectoral area is visible. LUNGS: Clear to auscultation bilaterally. ABDOMEN: Soft, nontender, and nondistended. No hepatosplenomegaly. Positive bowel sounds. EXTREMITIES: No evidence of edema, clubbing, or cyanosis. Pro Yo MD Jan 12, 2018 23:01
[2018-01-13] VITALS: BP 106/51
[2018-01-13] MEDS: Albuterol/Ipratropium 3ml neb HHN SCH ×6 (03:41→23:16)
[2018-01-13 04:00] VITALS: BP_SYST 128; BP_SYST 98; BP_DIAS 65; BP_DIAS 70
[2018-01-13 07:39] LABS: BASOPHILS % (AUTO) 0.3 % (0.0-2.0); EOSINOPHILS % (AUTO) 0.3 % (0.0-3.0); HEMATOCRIT 25.3 % (37.0-47.0); HEMOGLOBIN 8.7 G/DL (12.0-16.0); LYMPHOCYTES % (AUTO) 13.3 % (20.0-45.0); MEAN CORPUSCULAR VOLUME 99 FL (80-99); MONOCYTES % (AUTO) 6.4 % (1.0-10.0); NEUTROPHILS % (AUTO) 79.8 % (45.0-75.0); PLATELET COUNT 158 K/UL (150-450); RED BLOOD COUNT 2.56 M/UL (4.20-5.40); RED CELL DISTRIBUTION WIDTH 15.6 % (11.6-14.8); WHITE BLOOD COUNT 10.6 K/UL (4.8-10.8)
[2018-01-13 08:00] VITALS: BP 112/62
--- NOTE | 2018-01-13 08:10 | Pulmonology Progress Note ---
Assessment/Plan Assessment/Plan IMPRESSION: 1. Tachypnea.improved 2. Shortness of breath. improved 3. Respiratory insufficiency.? pulmonary edema 4. Status post open reduction and internal fixation. 5. Anemia, status post transfusion. PLAN respiratory care negative Venous US respiratory care as is keep negative; per cards oxygen off solumedrol for now and stable monitor fluid status impression, plan, and exam edited and reviewed in detail care discussed with RN Subjective Allergies: Coded Allergies: No Known Allergies (Unverified , 01/07/18) Subjective care noted ABG noted results reviewed venous US negative Objective Last 24 Hour Vital Signs Date Time Temp Pulse Resp B/P (MAP) Pulse Ox O2 Delivery O2 Flow Rate FiO2 01/13/18 04:00 97.0 85 24 98/65 (76) 98 97.0 01/13/18 03:59 83 01/13/18 03:50 83 20 98 Nasal Cannula 2.0 28 01/13/18 03:41 81 20 98 Nasal Cannula 2.0 01/13/18 00:04 85 20 98 Nasal Cannula 2.0 28 01/13/18 00:00 97.4 88 20 106/51 (69) 98 97.4 01/12/18 23:52 83 20 98 Nasal Cannula 2.0 28 01/12/18 23:29 85 01/12/18 21:01 87 20 98 Nasal Cannula 2.0 01/12/18 21:00 Nasal Cannula 2.0 01/12/18 20:47 81 20 97 Nasal Cannula 2.0 01/12/18 20:00 97.8 82 20 101/52 (68) 100 97.8 01/12/18 19:06 82 01/12/18 16:09 80 20 100 Nasal Cannula 2.0 28 01/12/18 16:00 80 01/12/18 16:00 98.2 82 20 101/60 (74) 100 98.2 01/12/18 15:57 76 20 99 Nasal Cannula 2.0 01/12/18 13:26 92 20 96 Nasal Cannula 2.0 28 01/12/18 13:23 81 20 99 Nasal Cannula 2.0 28 01/12/18 12:00 86 01/12/18 12:00 97.5 81 22 101/53 (69) 100 97.5 01/12/18 09:00 Nasal Cannula 2.0 01/12/18 08:54 92 20 99 Nasal Cannula 2.0 28 01/12/18 08:37 91 20 98 Nasal Cannula 2.0 28 Intake and Output 01/12/18 01/13/18 19:00 07:00 Intake Total 490 ml Output Total 450 ml 2500 ml Balance 40 ml -2500 ml Intake Oral 240 ml Blood Product 250 ml Output Urine Total 450 ml 2500 ml Objective GENERAL: A well-developed male, NAD HEENT: Overall negative. NECK: Supple. LUNGS: moderate air entry with no significant rhonchi or wheeze CARDIAC: Normal S1 and S2. Regular rate and rhythm without murmurs, rubs, or gallops. ABDOMEN: Soft, nontender, and nondistended. EXTREMITIES: No significant edema. Some reduction in range of motion. awake Laboratory Tests 01/12/18 17:07: White Blood Count 11.5H, Red Blood Count 2.59L, Hemoglobin 8.7L, Hematocrit 25.0L, Mean Corpuscular Volume 97, Mean Corpuscular Hemoglobin 33.7H, Mean Corpuscular Hemoglobin Concent 34.9, Red Cell Distribution Width 14.6, Platelet Count 130L, Mean Platelet Volume 6.3L, Neutrophils (%) (Auto) , Lymphocytes (%) (Auto) , Monocytes (%) (Auto) , Eosinophils (%) (Auto) , Basophils (%) (Auto) , Differential Total Cells Counted 100, Neutrophils % (Manual) 83H, Lymphocytes % (Manual) 11L, Monocytes % (Manual) 5, Eosinophils % (Manual) 0, Basophils % ( Manual) 0, Band Neutrophils 1, Platelet Estimate DecreasedL, Platelet Morphology Normal, Hypochromasia 1+, Anisocytosis 1+ 01/13/18 06:05: White Blood Count 10.6, Red Blood Count 2.56L, Hemoglobin 8.7L, Hematocrit 25.3L , Mean Corpuscular Volume 99, Mean Corpuscular Hemoglobin 33.9H, Mean Corpuscular Hemoglobin Concent 34.3, Red Cell Distribution Width 15.6H, Platelet Count 158, Mean Platelet Volume 6.8, Neutrophils (%) (Auto) 79.8H, Lymphocytes (%) (Auto) 13.3L, Monocytes (%) (Auto) 6.4, Eosinophils (%) (Auto) 0.3, Basophils (%) (Auto) 0.3, Sodium Level [Pending], Potassium Level [Pending] , Chloride Level [Pending], Carbon Dioxide Level [Pending], Blood Urea Nitrogen [Pending], Creatinine [Pending], Estimat Glomerular Filtration Rate [Pending], Glucose Level [Pending], Calcium Level [Pending], Magnesium Level [Pending], Total Bilirubin [Pending], Aspartate Amino Transf (AST/SGOT) [Pending], Alanine Aminotransferase (ALT/SGPT) [Pending], Alkaline Phosphatase [Pending], Total Protein [Pending], Albumin [Pending], Globulin [Pending] Current Medications Medications (Trade) Dose Ordered Sig/Kiya Route PRN Reason Start Time Stop Time Status Last Admin Dose Admin Acetaminophen (Tylenol) 650 mg Q4H PRN ORAL Mild Pain (Pain Scale 1-3) 01/10/18 01:30 02/07/18 17:29 01/10/18 11:16 Acetaminophen (Tylenol) 650 mg Q4H PRN ORAL temp>100 01/10/18 01:30 02/07/18 17:29 01/11/18 09:17 Acetaminophen/ Hydrocodone Bitart ([place] 5/325) 2 tab Q6H PRN ORAL Severe Pain (Pain Scale 7-10) 01/10/18 03:00 01/15/18 14:59 Acetaminophen/ Hydrocodone Bitart ([place] 7.5/325) 1 tab Q4H PRN ORAL Moderate Pain (Pain Scale 4-6) 01/10/18 03:00 01/15/18 14:59 01/12/18 07:03 Albuterol/ Ipratropium (Albuterol/ Ipratropium) 3 ml Q4HRT HHN 01/11/18 15:00 01/16/18 14:59 01/13/18 07:08 Alendronate Sodium (Fosamax) 70 mg ONCE A WEEK ORAL 01/10/18 06:00 02/09/18 05:59 01/10/18 06:06 Amiodarone HCl (Cordarone) 200 mg DAILY ORAL 01/10/18 09:00 02/07/18 08:59 01/12/18 10:13 Apixaban (Eliquis) 2.5 mg BID ORAL 01/13/18 09:00 02/12/18 08:59 Atorvastatin Calcium (Lipitor) 20 mg BEDTIME ORAL 01/10/18 21:00 02/06/18 20:59 01/12/18 21:42 Bisacodyl (Dulcolax) 10 mg DAILYPRN PRN RECTAL Constipation 01/10/18 13:00 02/06/18 12:59 Calcium Carbonate (OsCal D) 1 tab DAILY ORAL 01/10/18 09:00 02/07/18 08:59 01/12/18 10:13 Dextrose/ Electrolytes 1,000 ml @ 75 mls/hr [id number] IV 01/10/18 01:00 02/07/18 17:59 01/11/18 02:38 Docusate Sodium (Colace) 100 mg Q12HR ORAL 01/10/18 21:00 02/08/18 20:59 01/12/18 21:41 Epoetin Oli (Procrit (for ESRD on dialysis)) 10,000 units SUN-SUN-SUN SUBQ 01/11/18 21:00 02/10/18 20:59 01/11/18 21:16 Ferrous Sulfate (Feosol) 300 mg Q12HR ORAL 01/10/18 21:00 02/08/18 20:59 01/12/18 21:41 Folic Acid (Folate) 1 mg DAILY ORAL 01/10/18 09:00 02/07/18 08:59 01/12/18 10:13 Gabapentin (Neurontin) 100 mg THREE TIMES A DAY ORAL 01/10/18 09:00 02/06/18 12:59 01/12/18 17:30 Lactulose (Cephulac) 20 gm DAILY PRN ORAL Constipation 01/10/18 09:00 02/06/18 12:59 Magnesium Hydroxide (Mom) 30 ml DAILYPRN PRN ORAL Constipation 01/10/18 15:00 02/07/18 14:59 01/11/18 02:34 Morphine Sulfate (Morphine Sulfate) 1 mg Q3H PRN IVP Pain scale 1-3 01/10/18 03:00 01/15/18 14:59 Ondansetron HCl (Zofran) 4 mg Q8H PRN IVP Nausea & Vomiting 01/10/18 07:00 02/07/18 14:59 Solifenacin (Vesicare) 5 mg DAILY ORAL 01/10/18 09:00 02/07/18 08:59 01/12/18 10:13 Roverto Abraham MD Jan 13, 2018 08:10
[2018-01-13 08:30] LABS: ALANINE AMINOTRANSFERASE 15 U/L (12-78); ALBUMIN 2.3 G/DL (3.4-5.0); ALBUMIN/GLOBULIN RATIO 0.6 (1.0-2.7); ALKALINE PHOSPHATASE 44 U/L (46-116); ANION GAP 8 mmol/L (5-15); ASPARTATE AMINO TRANSFERASE 24 U/L (15-37); BILIRUBIN,TOTAL 1.8 MG/DL (0.2-1.0); BLOOD UREA NITROGEN 40 mg/dL (7-18); CALCIUM 7.8 MG/DL (8.5-10.1); CARBON DIOXIDE 26 MMOL/L (21-32); CHLORIDE 104 MMOL/L (98-107); CREATININE 2.1 MG/DL (0.55-1.30); POTASSIUM 4.2 MMOL/L (3.5-5.1); SODIUM 137 MMOL/L (136-145)
[2018-01-13 08:32] LABS: BILIRUBIN,DIRECT 0.7 MG/DL (0.0-0.3)
[2018-01-13] MEDS: Eliquis 2.5mg tablet ORAL SCH ×2 (09:43→17:09)
[2018-01-13] MEDS: Calcium Carbonate 500mg w/Vit D 200iu tab ORAL SCH (09:43)
[2018-01-13] MEDS: Amiodarone 200mg tab ORAL SCH (09:44)
[2018-01-13] MEDS: Ferrous Sulfate 300 MG/5 ML UDC ORAL SCH ×2 (09:44→20:25)
[2018-01-13] MEDS: Docusate 100mg/10ml Liq ORAL SCH ×2 (09:44→20:25)
[2018-01-13] MEDS: D5 1/2NS w/KCl 20mEq 1,000 ML IV SCH ×2 (09:54→22:20)
--- NOTE | 2018-01-13 11:14 | General Progress Note ---
Assessment/Plan Problem List: (1) Anemia ICD Codes: D64.9 - Anemia, unspecified SNOMED: 140344706 Qualifiers: Qualified Codes: D64.9 - Anemia, unspecified (2) CKD (chronic kidney disease) ICD Codes: N18.9 - Chronic kidney disease, unspecified SNOMED: 475012533 Qualifiers: Qualified Codes: N18.9 - Chronic kidney disease, unspecified (3) Intertrochanteric fracture of right femur ICD Codes: S72.141A - Displaced intertrochanteric fracture of right femur, initial encounter for closed fracture SNOMED: 024600725 Qualifiers: Qualified Codes: S72.141A - Displaced intertrochanteric fracture of right femur, initial encounter for closed fracture (4) Hip fracture, right ICD Codes: S72.001A - Fracture of unspecified part of neck of right femur, initial encounter for closed fracture SNOMED: 908922163 Status: stable, progressing Assessment/Plan monitor for bleeding monitor h/h transfuse dvt prophylaxis with scd holding xarelto lovenox for few days skin care cont current rx Subjective ROS Limited/Unobtainable: No Constitutional: Reports: malaise, weakness HEENT: Reports: no symptoms Cardiovascular: Reports: no symptoms Respiratory: Reports: no symptoms Gastrointestinal/Abdominal: Reports: no symptoms Genitourinary: Reports: no symptoms Neurologic/Psychiatric: Reports: no symptoms Endocrine: Reports: no symptoms Hematologic/Lymphatic: Reports: anemia Allergies: Coded Allergies: No Known Allergies (Unverified , 01/07/18) All Systems: reviewed and negative except above Subjective increased sob yesterday. cxr with chf. better after iv lasix. h/h stable Objective Last 24 Hour Vital Signs Date Time Temp Pulse Resp B/P (MAP) Pulse Ox O2 Delivery O2 Flow Rate FiO2 01/13/18 09:00 Nasal Cannula 2.0 01/13/18 08:00 98.2 85 21 112/62 (79) 98 98.2 01/13/18 07:10 85 20 99 Nasal Cannula 2.0 28 01/13/18 07:00 81 20 97 Nasal Cannula 2.0 28 01/13/18 04:00 97.0 85 24 98/65 (76) 98 97.0 01/13/18 03:59 83 01/13/18 03:50 83 20 98 Nasal Cannula 2.0 28 01/13/18 03:41 81 20 98 Nasal Cannula 2.0 01/13/18 00:04 85 20 98 Nasal Cannula 2.0 01/13/18 00:00 97.4 88 20 106/51 (69) 98 97.4 01/12/18 23:52 83 20 98 Nasal Cannula 2.0 01/12/18 23:29 85 01/12/18 21:01 87 20 98 Nasal Cannula 2.0 01/12/18 21:00 Nasal Cannula 2.0 01/12/18 20:47 81 20 97 Nasal Cannula 2.0 01/12/18 20:00 97.8 82 20 101/52 (68) 100 97.8 01/12/18 19:06 82 01/12/18 16:09 80 20 100 Nasal Cannula 2.0 01/12/18 16:00 80 01/12/18 16:00 98.2 82 20 101/60 (74) 100 98.2 01/12/18 15:57 76 20 99 Nasal Cannula 2.0 01/12/18 13:26 92 20 96 Nasal Cannula 2.0 01/12/18 13:23 81 20 99 Nasal Cannula 2.0 01/12/18 12:00 86 01/12/18 12:00 97.5 81 22 101/53 (69) 100 97.5 Intake and Output 01/12/18 01/13/18 19:00 07:00 Intake Total 490 ml Output Total 450 ml 2500 ml Balance 40 ml -2500 ml Intake Oral 240 ml Blood Product 250 ml Output Urine Total 450 ml 2500 ml Laboratory Tests 01/12/18 17:07: White Blood Count 11.5H, Red Blood Count 2.59L, Hemoglobin 8.7L, Hematocrit 25.0L, Mean Corpuscular Volume 97, Mean Corpuscular Hemoglobin 33.7H, Mean Corpuscular Hemoglobin Concent 34.9, Red Cell Distribution Width 14.6, Platelet Count 130L, Mean Platelet Volume 6.3L, Neutrophils (%) (Auto) , Lymphocytes (%) (Auto) , Monocytes (%) (Auto) , Eosinophils (%) (Auto) , Basophils (%) (Auto) , Differential Total Cells Counted 100, Neutrophils % (Manual) 83H, Lymphocytes % (Manual) 11L, Monocytes % (Manual) 5, Eosinophils % (Manual) 0, Basophils % ( Manual) 0, Band Neutrophils 1, Platelet Estimate DecreasedL, Platelet Morphology Normal, Hypochromasia 1+, Anisocytosis 1+ 01/13/18 06:05: White Blood Count 10.6, Red Blood Count 2.56L, Hemoglobin 8.7L, Hematocrit 25.3L , Mean Corpuscular Volume 99, Mean Corpuscular Hemoglobin 33.9H, Mean Corpuscular Hemoglobin Concent 34.3, Red Cell Distribution Width 15.6H, Platelet Count 158, Mean Platelet Volume 6.8, Neutrophils (%) (Auto) 79.8H, Lymphocytes (%) (Auto) 13.3L, Monocytes (%) (Auto) 6.4, Eosinophils (%) (Auto) 0.3, Basophils (%) (Auto) 0.3, Sodium Level 137, Potassium Level 4.2, Chloride Level 104, Carbon Dioxide Level 26, Anion Gap 8, Blood Urea Nitrogen 40H, Creatinine 2.1H, Estimat Glomerular Filtration Rate , Glucose Level 122H, Calcium Level 7.8L, Magnesium Level 2.5H, Total Bilirubin 1.8H, Direct Bilirubin 0.7H, Aspartate Amino Transf (AST/SGOT) 24, Alanine Aminotransferase ( ALT/SGPT) 15, Alkaline Phosphatase 44L, Total Protein 6.3L, Albumin 2.3L, Globulin 4.0, Albumin/Globulin Ratio 0.6L Height (Feet): 5 Height (Inches): 0.00 Weight (Pounds): 160 Objective General Appearance: WD/WN, alert Neck: supple Cardiovascular: normal rate, regular rhythm Respiratory/Chest: chest wall non-tender, lungs clear Abdomen: normal bowel sounds, non tender, soft, no organomegaly Edema: no edema noted Arm (L), no edema noted Arm (R), no edema noted Leg (L), no edema noted Leg (R), no edema noted Pedal (L), no edema noted Pedal (R), no edema noted Generalized Anupam Byers MD Jan 13, 2018 11:14
[2018-01-13 11:54] VITALS: BP 123/65
--- NOTE | 2018-01-13 12:10 | Cardiology Report ---
APPROVED REPORT EKG Measurement Heart [id number] CO 182P-16 [id number] SG158H-2 [id number] Normal sinus rhythm Normal ECG
[2018-01-13 15:59] VITALS: BP 106/57
--- NOTE | 2018-01-13 19:13 | Cardiology Progress Note ---
Assessment/Plan Assessment/Plan 1. s/p Right hip ORIF, POD #5, no richard-operative cardiac events, continue Eliquis. 2. History of sick sinus syndrome, status post dual-chamber pacemaker implantation. 3. Paroxysmal atrial fibrillation, in SR, continue amiodarone. 4. History of dyslipidemia. 5. History of chronic kidney disease with associated anemia, s/p blood transfusion. Subjective Subjective Sinus rhythm at 77. Objective Last 24 Hour Vital Signs Date Time Temp Pulse Resp B/P (MAP) Pulse Ox O2 Delivery O2 Flow Rate FiO2 01/13/18 16:00 77 01/13/18 15:59 98.6 75 21 106/57 (73) 98 98.6 01/13/18 15:55 84 20 99 Nasal Cannula 2.0 28 01/13/18 15:45 84 18 98 Nasal Cannula 2.0 28 01/13/18 12:00 85 01/13/18 11:54 98.0 77 21 123/65 (84) 97 98.0 01/13/18 11:38 88 20 99 Nasal Cannula 2.0 28 01/13/18 11:36 Nasal Cannula 2.0 28 01/13/18 11:30 80 18 98 Nasal Cannula 2.0 28 01/13/18 11:30 98 Nasal Cannula 2.0 28 01/13/18 09:00 Nasal Cannula 2.0 01/13/18 08:00 85 01/13/18 08:00 98.2 85 21 112/62 (79) 98 98.2 01/13/18 07:10 85 20 99 Nasal Cannula 2.0 28 01/13/18 07:00 81 20 97 Nasal Cannula 2.0 28 01/13/18 04:00 97.0 85 24 98/65 (76) 98 97.0 01/13/18 03:59 83 01/13/18 03:50 83 20 98 Nasal Cannula 2.0 01/13/18 03:41 81 20 98 Nasal Cannula 2.0 28 01/13/18 00:04 85 20 98 Nasal Cannula 2.0 28 01/13/18 00:00 97.4 88 20 106/51 (69) 98 97.4 01/12/18 23:52 83 20 98 Nasal Cannula 2.0 28 01/12/18 23:29 85 01/12/18 21:01 87 20 98 Nasal Cannula 2.0 28 01/12/18 21:00 Nasal Cannula 2.0 01/12/18 20:47 81 20 97 Nasal Cannula 2.0 28 01/12/18 20:00 97.8 82 20 101/52 (68) 100 97.8 01/12/18 19:06 82 Intake and Output 01/12/18 01/13/18 19:00 07:00 Intake Total 490 ml Output Total 450 ml 2500 ml Balance 40 ml -2500 ml Intake Oral 240 ml Blood Product 250 ml Output Urine Total 450 ml 2500 ml 2D Echo: EF 55-60%, Grade I LVDD, RVSP 46 mmHg Laboratory Tests Test 01/13/18 06:05 White Blood Count 10.6 K/UL (4.8-10.8) Red Blood Count 2.56 M/UL (4.20-5.40) L Hemoglobin 8.7 G/DL (12.0-16.0) L Hematocrit 25.3 % (37.0-47.0) L Mean Corpuscular Volume 99 FL (80-99) Mean Corpuscular Hemoglobin 33.9 PG (27.0-31.0) H Mean Corpuscular Hemoglobin Concent 34.3 G/DL (32.0-36.0) Red Cell Distribution Width 15.6 % (11.6-14.8) H Platelet Count 158 K/UL (150-450) Mean Platelet Volume 6.8 FL (6.5-10.1) Neutrophils (%) (Auto) 79.8 % (45.0-75.0) H Lymphocytes (%) (Auto) 13.3 % (20.0-45.0) L Monocytes (%) (Auto) 6.4 % (1.0-10.0) Eosinophils (%) (Auto) 0.3 % (0.0-3.0) Basophils (%) (Auto) 0.3 % (0.0-2.0) Sodium Level 137 MMOL/L (136-145) Potassium Level 4.2 MMOL/L (3.5-5.1) Chloride Level 104 MMOL/L (98-107) Carbon Dioxide Level 26 MMOL/L (21-32) Anion Gap 8 mmol/L (5-15) Blood Urea Nitrogen 40 mg/dL (7-18) H Creatinine 2.1 MG/DL (0.55-1.30) H Estimat Glomerular Filtration Rate mL/min (>60) Glucose Level 122 MG/DL (74-106) H Calcium Level 7.8 MG/DL (8.5-10.1) L Magnesium Level 2.5 MG/DL (1.8-2.4) H Total Bilirubin 1.8 MG/DL (0.2-1.0) H Direct Bilirubin 0.7 MG/DL (0.0-0.3) H Aspartate Amino Transf (AST/SGOT) 24 U/L (15-37) Alanine Aminotransferase (ALT/SGPT) 15 U/L (12-78) Alkaline Phosphatase 44 U/L (46-116) L Total Protein 6.3 G/DL (6.4-8.2) L Albumin 2.3 G/DL (3.4-5.0) L Globulin 4.0 g/dL Albumin/Globulin Ratio 0.6 (1.0-2.7) L Objective HEENT: Atraumatic and normocephalic. EENT: Pupils are equal, round, and reactive to light and accommodation. Extraocular muscles intact. NECK: JVP less than 5 cm. No carotid bruit. Carotid upstroke is 2+ bilaterally. CVS: Normal S1 and S2. Regular rate and rhythm. No murmurs, gallops, or rubs. Pacemaker pocket in the left pectoral area is visible. LUNGS: Clear to auscultation bilaterally. ABDOMEN: Soft, nontender, and nondistended. No hepatosplenomegaly. Positive bowel sounds. EXTREMITIES: No evidence of edema, clubbing, or cyanosis. Pro Yo MD Jan 13, 2018 19:13
[2018-01-13 20:00] VITALS: BP 127/66
[2018-01-13] MEDS: Atorvastatin 20mg tab ORAL SCH (20:25)
[2018-01-14] VITALS: BP 117/60
[2018-01-14] MEDS: D5 1/2NS w/KCl 20mEq 1,000 ML IV SCH ×2 (02:48→17:29)
[2018-01-14] MEDS: Albuterol/Ipratropium 3ml neb HHN SCH ×6 (02:57→23:33)
[2018-01-14 04:00] VITALS: BP 121/63
[2018-01-14 08:00] VITALS: BP 119/61
--- NOTE | 2018-01-14 08:16 | Pulmonology Progress Note ---
Assessment/Plan Assessment/Plan IMPRESSION: 1. Tachypnea.resolved 2. Shortness of breath. improved 3. Respiratory insufficiency.? pulmonary edema 4. Status post open reduction and internal fixation. 5. Anemia, status post transfusion. PLAN respiratory care as is keep negative; per cards oxygen noted no acute bronchospasm or congestion noted monitor fluid status for change impression, plan, and exam edited and reviewed in detail care discussed with RN Subjective ROS Limited/Unobtainable: Yes Allergies: Coded Allergies: No Known Allergies (Unverified , 01/07/18) Subjective care noted no distress overnight no congestion Objective Last 24 Hour Vital Signs Date Time Temp Pulse Resp B/P (MAP) Pulse Ox O2 Delivery O2 Flow Rate FiO2 01/14/18 04:00 71 01/14/18 04:00 98.2 72 24 121/63 (82) 100 98.2 01/14/18 03:05 89 20 100 Nasal Cannula 2.0 28 01/14/18 02:57 79 18 96 Nasal Cannula 2.0 28 01/14/18 00:00 74 01/14/18 00:00 98.0 72 21 117/60 (79) 100 98.0 01/13/18 23:25 84 20 100 Nasal Cannula 2.0 28 01/13/18 23:16 81 18 98 Nasal Cannula 2.0 28 01/13/18 21:00 Nasal Cannula 2.0 01/13/18 20:00 82 01/13/18 20:00 99.0 82 20 127/66 (86) 100 99.0 01/13/18 19:21 80 20 99 Nasal Cannula 2.0 28 01/13/18 19:12 Nasal Cannula 2.0 28 01/13/18 19:12 96 Nasal Cannula 2.0 28 01/13/18 19:10 82 18 96 Nasal Cannula 2.0 28 01/13/18 16:00 77 01/13/18 15:59 98.6 75 21 106/57 (73) 98 98.6 01/13/18 15:55 84 20 99 Nasal Cannula 2.0 28 01/13/18 15:45 84 18 98 Nasal Cannula 2.0 28 01/13/18 12:00 85 01/13/18 11:54 98.0 77 21 123/65 (84) 97 98.0 01/13/18 11:38 88 20 99 Nasal Cannula 2.0 28 01/13/18 11:36 Nasal Cannula 2.0 28 01/13/18 11:30 80 18 98 Nasal Cannula 2.0 28 01/13/18 11:30 98 Nasal Cannula 2.0 28 01/13/18 09:00 Nasal Cannula 2.0 Intake and Output 01/13/18 01/14/18 19:00 07:00 Intake Total 735 ml Output Total 1000 ml Balance 735 ml -1000 ml Intake Oral 360 ml IV Total 375 ml Output Urine Total 1000 ml # Bowel Movements 1 Objective GENERAL: A well-developed male, NAD HEENT: Overall negative. NECK: Supple. LUNGS: moderate air entry with no significant rhonchi or wheeze CARDIAC: Normal S1 and S2. Regular rate and rhythm without murmurs, rubs, or gallops. ABDOMEN: Soft, nontender, and nondistended. EXTREMITIES: No significant edema. Some reduction in range of motion. awake Current Medications Medications (Trade) Dose Ordered Sig/Kiya Route PRN Reason Start Time Stop Time Status Last Admin Dose Admin Acetaminophen (Tylenol) 650 mg Q4H PRN ORAL Mild Pain (Pain Scale 1-3) 01/10/18 01:30 02/07/18 17:29 01/10/18 11:16 Acetaminophen (Tylenol) 650 mg Q4H PRN ORAL temp>100 01/10/18 01:30 02/07/18 17:29 01/11/18 09:17 Acetaminophen/ Hydrocodone Bitart ([place] 5/325) 2 tab Q6H PRN ORAL Severe Pain (Pain Scale 7-10) 01/10/18 03:00 01/15/18 14:59 Acetaminophen/ Hydrocodone Bitart ([place] 7.5/325) 1 tab Q4H PRN ORAL Moderate Pain (Pain Scale 4-6) 01/10/18 03:00 01/15/18 14:59 01/12/18 07:03 Albuterol/ Ipratropium (Albuterol/ Ipratropium) 3 ml Q4HRT HHN 01/11/18 15:00 01/16/18 14:59 01/14/18 02:57 Alendronate Sodium (Fosamax) 70 mg ONCE A WEEK ORAL 01/10/18 06:00 02/09/18 05:59 01/10/18 06:06 Amiodarone HCl (Cordarone) 200 mg DAILY ORAL 01/10/18 09:00 02/07/18 08:59 01/13/18 09:44 Apixaban (Eliquis) 2.5 mg BID ORAL 01/13/18 09:00 02/12/18 08:59 01/13/18 17:09 Atorvastatin Calcium (Lipitor) 20 mg BEDTIME ORAL 01/10/18 21:00 02/06/18 20:59 01/13/18 20:25 Bisacodyl (Dulcolax) 10 mg DAILYPRN PRN RECTAL Constipation 01/10/18 13:00 02/06/18 12:59 Calcium Carbonate (OsCal D) 1 tab DAILY ORAL 01/10/18 09:00 02/07/18 08:59 01/13/18 09:43 Dextrose/ Electrolytes 1,000 ml @ 75 mls/hr [id number] IV 01/10/18 01:00 02/07/18 17:59 01/14/18 02:48 Docusate Sodium (Colace) 100 mg Q12HR ORAL 01/10/18 21:00 02/08/18 20:59 01/13/18 20:25 Epoetin Oli (Procrit (for ESRD on dialysis)) 10,000 units SUN-SUN-SUN SUBQ 01/11/18 21:00 02/10/18 20:59 01/11/18 21:16 Ferrous Sulfate (Feosol) 300 mg Q12HR ORAL 01/10/18 21:00 02/08/18 20:59 01/13/18 20:25 Folic Acid (Folate) 1 mg DAILY ORAL 01/10/18 09:00 02/07/18 08:59 01/13/18 09:43 Gabapentin (Neurontin) 100 mg THREE TIMES A DAY ORAL 01/10/18 09:00 02/06/18 12:59 01/13/18 17:08 Lactulose (Cephulac) 20 gm DAILY PRN ORAL Constipation 01/10/18 09:00 02/06/18 12:59 Magnesium Hydroxide (Mom) 30 ml DAILYPRN PRN ORAL Constipation 01/10/18 15:00 02/07/18 14:59 01/11/18 02:34 Morphine Sulfate (Morphine Sulfate) 1 mg Q3H PRN IVP Pain scale 1-3 01/10/18 03:00 01/15/18 14:59 Ondansetron HCl (Zofran) 4 mg Q8H PRN IVP Nausea & Vomiting 01/10/18 07:00 02/07/18 14:59 Solifenacin (Vesicare) 5 mg DAILY ORAL 01/10/18 09:00 02/07/18 08:59 01/13/18 09:43 Roverto Abraham MD Jan 14, 2018 08:16
[2018-01-14 08:26] LABS: BASOPHILS % (AUTO) 0.4 % (0.0-2.0); EOSINOPHILS % (AUTO) 1.8 % (0.0-3.0); HEMATOCRIT 26.6 % (37.0-47.0); LYMPHOCYTES % (AUTO) 18.2 % (20.0-45.0); MEAN CORPUSCULAR VOLUME 100 FL (80-99); MONOCYTES % (AUTO) 6.1 % (1.0-10.0); NEUTROPHILS % (AUTO) 73.5 % (45.0-75.0); PLATELET COUNT 171 K/UL (150-450); RED BLOOD COUNT 2.66 M/UL (4.20-5.40); RED CELL DISTRIBUTION WIDTH 14.9 % (11.6-14.8); WHITE BLOOD COUNT 8.4 K/UL (4.8-10.8)
[2018-01-14] MEDS: Docusate 100mg/10ml Liq ORAL SCH ×2 (08:38→21:00)
[2018-01-14] MEDS: Amiodarone 200mg tab ORAL SCH (08:39)
[2018-01-14] MEDS: Eliquis 2.5mg tablet ORAL SCH ×2 (08:39→17:28)
[2018-01-14] MEDS: Ferrous Sulfate 300 MG/5 ML UDC ORAL SCH ×2 (08:39→21:00)
[2018-01-14] MEDS: Calcium Carbonate 500mg w/Vit D 200iu tab ORAL SCH (08:39)
[2018-01-14] MEDS: HYDROcodone/Acetamin 7.5/325 tab ORAL PRN (10:45)
[2018-01-14 12:00] VITALS: BP 118/63
--- NOTE | 2018-01-14 13:32 | General Progress Note ---
Assessment/Plan Problem List: (1) Anemia ICD Codes: D64.9 - Anemia, unspecified SNOMED: 751342275 Qualifiers: Qualified Codes: D64.9 - Anemia, unspecified (2) CKD (chronic kidney disease) ICD Codes: N18.9 - Chronic kidney disease, unspecified SNOMED: 976284287 Qualifiers: Qualified Codes: N18.9 - Chronic kidney disease, unspecified (3) Intertrochanteric fracture of right femur ICD Codes: S72.141A - Displaced intertrochanteric fracture of right femur, initial encounter for closed fracture SNOMED: 741728260 Qualifiers: Qualified Codes: S72.141A - Displaced intertrochanteric fracture of right femur, initial encounter for closed fracture (4) Hip fracture, right ICD Codes: S72.001A - Fracture of unspecified part of neck of right femur, initial encounter for closed fracture SNOMED: 797086367 Status: stable, progressing Assessment/Plan monitor for bleeding monitor h/h transfuse asneeded o2/resp rx dvt prophylaxis with scd holding xarelto lovenox skin care cont current rx repeat cxr ?dc planning tomorrow Subjective ROS Limited/Unobtainable: Yes Constitutional: Reports: malaise, weakness HEENT: Reports: no symptoms Cardiovascular: Reports: edema Respiratory: Reports: shortness of breath Gastrointestinal/Abdominal: Reports: no symptoms Genitourinary: Reports: no symptoms Neurologic/Psychiatric: Reports: no symptoms Endocrine: Reports: no symptoms Hematologic/Lymphatic: Reports: anemia Allergies: Coded Allergies: No Known Allergies (Unverified , 01/07/18) All Systems: reviewed and negative except above Subjective stable sob. cxr a little worse. on 2l. no chest pain no bleeding noted. h/h stable. Objective Last 24 Hour Vital Signs Date Time Temp Pulse Resp B/P (MAP) Pulse Ox O2 Delivery O2 Flow Rate FiO2 01/14/18 12:00 98.2 63 18 118/63 (81) 96 98.2 01/14/18 10:32 64 20 100 Nasal Cannula 2.0 01/14/18 10:30 64 20 100 Nasal Cannula 2.0 28 01/14/18 10:21 99 Nasal Cannula 2.0 28 01/14/18 10:21 65 20 99 Nasal Cannula 2.0 28 01/14/18 10:21 Nasal Cannula 2.0 28 01/14/18 09:00 Nasal Cannula 2.0 Nasal Cannula 2.0 01/14/18 08:00 98.8 68 18 119/61 (80) 99 98.8 01/14/18 08:00 65 01/14/18 04:00 71 01/14/18 04:00 98.2 72 24 121/63 (82) 100 98.2 01/14/18 03:05 89 20 100 Nasal Cannula 2.0 28 01/14/18 02:57 79 18 96 Nasal Cannula 2.0 28 01/14/18 00:00 74 01/14/18 00:00 98.0 72 21 117/60 (79) 100 98.0 01/13/18 23:25 84 20 100 Nasal Cannula 2.0 28 01/13/18 23:16 81 18 98 Nasal Cannula 2.0 28 01/13/18 21:00 Nasal Cannula 2.0 01/13/18 20:00 82 01/13/18 20:00 99.0 82 20 127/66 (86) 100 99.0 01/13/18 19:21 80 20 99 Nasal Cannula 2.0 28 01/13/18 19:12 Nasal Cannula 2.0 28 01/13/18 19:12 96 Nasal Cannula 2.0 28 01/13/18 19:10 82 18 96 Nasal Cannula 2.0 28 01/13/18 16:00 77 01/13/18 15:59 98.6 75 21 106/57 (73) 98 98.6 01/13/18 15:55 84 20 99 Nasal Cannula 2.0 28 01/13/18 15:45 84 18 98 Nasal Cannula 2.0 28 Intake and Output 01/13/18 01/14/18 19:00 07:00 Intake Total 735 ml Output Total 1000 ml Balance 735 ml -1000 ml Intake Oral 360 ml IV Total 375 ml Output Urine Total 1000 ml # Bowel Movements 1 Laboratory Tests 01/14/18 06:40: White Blood Count 8.4, Red Blood Count 2.66L, Hemoglobin 9.0L, Hematocrit 26.6L , Mean Corpuscular Volume 100H, Mean Corpuscular Hemoglobin 33.8H, Mean Corpuscular Hemoglobin Concent 33.8, Red Cell Distribution Width 14.9H, Platelet Count 171, Mean Platelet Volume 6.1L, Neutrophils (%) (Auto) 73.5, Lymphocytes (%) (Auto) 18.2L, Monocytes (%) (Auto) 6.1, Eosinophils (%) (Auto) 1.8, Basophils (%) (Auto) 0.4 Height (Feet): 5 Height (Inches): 0.00 Weight (Pounds): 160 Objective General Appearance: WD/WN, alert Neck: supple Cardiovascular: normal rate, regular rhythm Respiratory/Chest: chest wall non-tender, lungs clear Abdomen: normal bowel sounds, non tender, soft, no organomegaly Edema: no edema noted Arm (L), no edema noted Arm (R), no edema noted Leg (L), no edema noted Leg (R), no edema noted Pedal (L), no edema noted Pedal (R), no edema noted Generalized Anupam Byers MD Jan 14, 2018 13:32
[2018-01-14 16:00] VITALS: BP 103/52
--- NOTE | 2018-01-14 17:07 | Diagnostic Imaging Report ---
Indication: Cough Technique: One view of the chest Comparison: 01/11/2018 Findings: There is a left chest pacemaker again demonstrated. Interstitial congestive changes persist, stable to minimally improved. Small bilateral pleural effusions persist. The heart is borderline enlarged. Impression: Stable or perhaps minimally improved interstitial congestive changes, over 3 days Other stable findings as described
[2018-01-14 20:00] VITALS: BP 114/43
--- NOTE | 2018-01-14 20:03 | Cardiology Progress Note ---
Assessment/Plan Assessment/Plan 1. s/p Right hip ORIF, POD #6, no richard-operative cardiac events, continue Eliquis. 2. History of sick sinus syndrome, status post dual-chamber pacemaker implantation. 3. Paroxysmal atrial fibrillation, in SR, continue amiodarone. 4. History of dyslipidemia. 5. History of chronic kidney disease with associated anemia, s/p blood transfusion. Subjective Subjective Sinus rhythm at 62. Objective Last 24 Hour Vital Signs Date Time Temp Pulse Resp B/P (MAP) Pulse Ox O2 Delivery O2 Flow Rate FiO2 01/14/18 16:00 62 01/14/18 16:00 98.6 63 18 103/52 (69) 98 98.6 01/14/18 15:40 66 20 98 Nasal Cannula 2.0 28 01/14/18 15:31 63 20 99 Nasal Cannula 2.0 28 01/14/18 12:00 61 01/14/18 12:00 98.2 63 18 118/63 (81) 96 98.2 01/14/18 10:32 64 20 100 Nasal Cannula 2.0 28 01/14/18 10:30 64 20 100 Nasal Cannula 2.0 28 01/14/18 10:21 99 Nasal Cannula 2.0 28 01/14/18 10:21 65 20 99 Nasal Cannula 2.0 28 01/14/18 10:21 Nasal Cannula 2.0 28 01/14/18 09:00 Nasal Cannula 2.0 Nasal Cannula 2.0 01/14/18 08:00 98.8 68 18 119/61 (80) 99 98.8 01/14/18 08:00 65 01/14/18 04:00 71 01/14/18 04:00 98.2 72 24 121/63 (82) 100 98.2 01/14/18 03:05 89 20 100 Nasal Cannula 2.0 28 01/14/18 02:57 79 18 96 Nasal Cannula 2.0 28 01/14/18 00:00 74 01/14/18 00:00 98.0 72 21 117/60 (79) 100 98.0 01/13/18 23:25 84 20 100 Nasal Cannula 2.0 28 01/13/18 23:16 81 18 98 Nasal Cannula 2.0 28 01/13/18 21:00 Nasal Cannula 2.0 Intake and Output 01/13/18 01/14/18 19:00 07:00 Intake Total 735 ml Output Total 1000 ml Balance 735 ml -1000 ml Intake Oral 360 ml IV Total 375 ml Output Urine Total 1000 ml # Bowel Movements 1 2D Echo: EF 55-60%, Grade I LVDD, RVSP 46 mmHg Laboratory Tests Test 01/14/18 06:40 White Blood Count 8.4 K/UL (4.8-10.8) Red Blood Count 2.66 M/UL (4.20-5.40) L Hemoglobin 9.0 G/DL (12.0-16.0) L Hematocrit 26.6 % (37.0-47.0) L Mean Corpuscular Volume 100 FL (80-99) H Mean Corpuscular Hemoglobin 33.8 PG (27.0-31.0) H Mean Corpuscular Hemoglobin Concent 33.8 G/DL (32.0-36.0) Red Cell Distribution Width 14.9 % (11.6-14.8) H Platelet Count 171 K/UL (150-450) Mean Platelet Volume 6.1 FL (6.5-10.1) L Neutrophils (%) (Auto) 73.5 % (45.0-75.0) Lymphocytes (%) (Auto) 18.2 % (20.0-45.0) L Monocytes (%) (Auto) 6.1 % (1.0-10.0) Eosinophils (%) (Auto) 1.8 % (0.0-3.0) Basophils (%) (Auto) 0.4 % (0.0-2.0) Objective HEENT: Atraumatic and normocephalic. EENT: Pupils are equal, round, and reactive to light and accommodation. Extraocular muscles intact. NECK: JVP less than 5 cm. No carotid bruit. Carotid upstroke is 2+ bilaterally. CVS: Normal S1 and S2. Regular rate and rhythm. No murmurs, gallops, or rubs. Pacemaker pocket in the left pectoral area is visible. LUNGS: Clear to auscultation bilaterally. ABDOMEN: Soft, nontender, and nondistended. No hepatosplenomegaly. Positive bowel sounds. EXTREMITIES: No evidence of edema, clubbing, or cyanosis. Pro Yo MD Jan 14, 2018 20:03
[2018-01-14] MEDS: Atorvastatin 20mg tab ORAL SCH (21:00)
[2018-01-14] MEDS: Epogen (for ESRD on dialysis) SUBQ SCH (21:30)
[2018-01-15] VITALS: BP 126/54
[2018-01-15] MEDS: Albuterol/Ipratropium 3ml neb HHN SCH ×4 (03:21→14:57)
[2018-01-15 04:00] VITALS: BP 113/51
--- NOTE | 2018-01-15 07:53 | General Progress Note ---
Assessment/Plan Problem List: (1) Anemia ICD Codes: D64.9 - Anemia, unspecified SNOMED: 831012570 Qualifiers: Qualified Codes: D64.9 - Anemia, unspecified (2) CKD (chronic kidney disease) ICD Codes: N18.9 - Chronic kidney disease, unspecified SNOMED: 743079678 Qualifiers: Qualified Codes: N18.9 - Chronic kidney disease, unspecified (3) Intertrochanteric fracture of right femur ICD Codes: S72.141A - Displaced intertrochanteric fracture of right femur, initial encounter for closed fracture SNOMED: 480709490 Qualifiers: Qualified Codes: S72.141A - Displaced intertrochanteric fracture of right femur, initial encounter for closed fracture (4) Hip fracture, right ICD Codes: S72.001A - Fracture of unspecified part of neck of right femur, initial encounter for closed fracture SNOMED: 959336520 Status: stable Assessment/Plan follow up labs dvt prophylaxis resp care dc planning if labs ok Subjective ROS Limited/Unobtainable: No Constitutional: Reports: malaise, weakness HEENT: Reports: no symptoms Cardiovascular: Reports: no symptoms Respiratory: Reports: no symptoms Gastrointestinal/Abdominal: Reports: no symptoms Genitourinary: Reports: no symptoms Neurologic/Psychiatric: Reports: no symptoms Endocrine: Reports: no symptoms Hematologic/Lymphatic: Reports: anemia Allergies: Coded Allergies: No Known Allergies (Unverified , 01/07/18) All Systems: reviewed and negative except above Subjective stable sob. cxr with decreased chf. on 2l. no chest pain no bleeding noted. labs pending Objective Last 24 Hour Vital Signs Date Time Temp Pulse Resp B/P (MAP) Pulse Ox O2 Delivery O2 Flow Rate FiO2 01/15/18 07:02 66 20 100 Nasal Cannula 2.0 28 01/15/18 06:51 Nasal Cannula 2.0 28 01/15/18 06:51 98 Nasal Cannula 2.0 28 01/15/18 06:51 60 18 98 Nasal Cannula 2.0 28 01/15/18 04:00 99.6 61 16 113/51 (71) 99 99.6 01/15/18 04:00 60 01/15/18 03:32 64 22 100 Nasal Cannula 2.0 28 01/15/18 03:21 60 18 100 Nasal Cannula 2.0 28 01/15/18 01:05 99.0 7/17/18 00:06 100.7 01/15/18 00:00 60 01/15/18 00:00 100.8 62 18 126/54 (78) 98 100.8 01/14/18 23:44 64 22 99 Nasal Cannula 2.0 28 01/14/18 23:33 83 22 98 Nasal Cannula 2.0 28 01/14/18 21:00 Nasal Cannula 2.0 Nasal Cannula 2.0 01/14/18 20:00 60 01/14/18 20:00 98.1 60 16 114/43 (66) 94 98.1 01/14/18 19:35 62 22 99 Nasal Cannula 2.0 28 01/14/18 19:25 60 18 98 Nasal Cannula 2.0 28 01/14/18 19:25 Nasal Cannula 2.0 28 01/14/18 16:00 62 01/14/18 16:00 98.6 63 18 103/52 (69) 98 98.6 01/14/18 15:40 66 20 98 Nasal Cannula 2.0 28 01/14/18 15:31 63 20 99 Nasal Cannula 2.0 28 01/14/18 12:00 61 01/14/18 12:00 98.2 63 18 118/63 (81) 96 98.2 01/14/18 10:32 64 20 100 Nasal Cannula 2.0 28 01/14/18 10:30 64 20 100 Nasal Cannula 2.0 28 01/14/18 10:21 99 Nasal Cannula 2.0 28 01/14/18 10:21 65 20 99 Nasal Cannula 2.0 28 01/14/18 10:21 Nasal Cannula 2.0 28 01/14/18 09:00 Nasal Cannula 2.0 Nasal Cannula 2.0 01/14/18 08:00 98.8 68 18 119/61 (80) 99 98.8 01/14/18 08:00 65 Intake and Output 01/14/18 01/15/18 19:00 07:00 Intake Total 915 ml Output Total 700 ml 900 ml Balance 215 ml -900 ml Intake Oral 840 ml IV Total 75 ml Output Urine Total 700 ml 900 ml # Bowel Movements 1 Height (Feet): 5 Height (Inches): 0.00 Weight (Pounds): 160 Objective General Appearance: WD/WN, alert Neck: supple Cardiovascular: normal rate, regular rhythm Respiratory/Chest: chest wall non-tender, lungs clear Abdomen: normal bowel sounds, non tender, soft, no organomegaly Edema: no edema noted Arm (L), no edema noted Arm (R), no edema noted Leg (L), no edema noted Leg (R), no edema noted Pedal (L), no edema noted Pedal (R), no edema noted Generalized Anupam Byers MD Jan 15, 2018 07:53
[2018-01-15 08:00] VITALS: BP 101/41
[2018-01-15 08:07] LABS: BASOPHILS % (AUTO) 0.6 % (0.0-2.0); EOSINOPHILS % (AUTO) 2.1 % (0.0-3.0); HEMATOCRIT 26.7 % (37.0-47.0); HEMOGLOBIN 8.8 G/DL (12.0-16.0); LYMPHOCYTES % (AUTO) 27.3 % (20.0-45.0); MEAN CORPUSCULAR VOLUME 101 FL (80-99); MONOCYTES % (AUTO) 6.9 % (1.0-10.0); NEUTROPHILS % (AUTO) 63.1 % (45.0-75.0); PLATELET COUNT 190 K/UL (150-450); RED BLOOD COUNT 2.63 M/UL (4.20-5.40); RED CELL DISTRIBUTION WIDTH 14.3 % (11.6-14.8); WHITE BLOOD COUNT 6.6 K/UL (4.8-10.8)
[2018-01-15] MEDS: Ferrous Sulfate 300 MG/5 ML UDC ORAL SCH (08:27)
[2018-01-15] MEDS: Docusate 100mg/10ml Liq ORAL SCH (08:27)
[2018-01-15] MEDS: Eliquis 2.5mg tablet ORAL SCH (08:27)
[2018-01-15] MEDS: Calcium Carbonate 500mg w/Vit D 200iu tab ORAL SCH (08:27)
[2018-01-15] MEDS: Amiodarone 200mg tab ORAL SCH (08:28)
[2018-01-15 08:36] LABS: ALANINE AMINOTRANSFERASE 16 U/L (12-78); ALBUMIN 2.1 G/DL (3.4-5.0); ALBUMIN/GLOBULIN RATIO 0.5 (1.0-2.7); ALKALINE PHOSPHATASE 50 U/L (46-116); ANION GAP 4 mmol/L (5-15); ASPARTATE AMINO TRANSFERASE 21 U/L (15-37); BILIRUBIN,TOTAL 1.3 MG/DL (0.2-1.0); BLOOD UREA NITROGEN 28 mg/dL (7-18); CALCIUM 7.8 MG/DL (8.5-10.1); CARBON DIOXIDE 23 MMOL/L (21-32); CHLORIDE 106 MMOL/L (98-107); CREATININE 1.8 MG/DL (0.55-1.30); POTASSIUM 5.5 MMOL/L (3.5-5.1); SODIUM 133 MMOL/L (136-145)
[2018-01-15 08:37] LABS: BILIRUBIN,DIRECT 0.6 MG/DL (0.0-0.3)
[2018-01-15] MEDS: HYDROcodone/Acetamin 7.5/325 tab ORAL PRN (08:59)
--- NOTE | 2018-01-15 09:13 | Pulmonology Progress Note ---
Assessment/Plan Assessment/Plan IMPRESSION: 1. Tachypnea.resolved 2. Shortness of breath. improved 3. Respiratory insufficiency.? pulmonary edema 4. Status post open reduction and internal fixation. 5. Anemia, status post transfusion. PLAN respiratory care without change keep negative; per cards oxygen noted and stable no acute bronchospasm or congestion noted monitor fluid status for change impression, plan, and exam edited and reviewed in detail care discussed with RN Subjective Allergies: Coded Allergies: No Known Allergies (Unverified , 01/07/18) Subjective care noted no distress overnight and no respiratory concerns no congestion Objective Last 24 Hour Vital Signs Date Time Temp Pulse Resp B/P (MAP) Pulse Ox O2 Delivery O2 Flow Rate FiO2 01/15/18 08:00 96.6 61 18 101/41 (61) 97 96.6 01/15/18 07:02 66 20 100 Nasal Cannula 2.0 28 01/15/18 06:51 Nasal Cannula 2.0 28 01/15/18 06:51 98 Nasal Cannula 2.0 28 01/15/18 06:51 60 18 98 Nasal Cannula 2.0 28 01/15/18 04:00 99.6 61 16 113/51 (71) 99 99.6 01/15/18 04:00 60 01/15/18 03:32 64 22 100 Nasal Cannula 2.0 28 01/15/18 03:21 60 18 100 Nasal Cannula 2.0 28 01/15/18 01:05 99.0 01/15/18 00:06 100.7 01/15/18 00:00 60 01/15/18 00:00 100.8 62 18 126/54 (78) 98 100.8 01/14/18 23:44 64 22 99 Nasal Cannula 2.0 28 01/14/18 23:33 83 22 98 Nasal Cannula 2.0 28 01/14/18 21:00 Nasal Cannula 2.0 Nasal Cannula 2.0 01/14/18 20:00 60 01/14/18 20:00 98.1 60 16 114/43 (66) 94 98.1 01/14/18 19:35 62 22 99 Nasal Cannula 2.0 28 01/14/18 19:25 60 18 98 Nasal Cannula 2.0 28 01/14/18 19:25 Nasal Cannula 2.0 28 01/14/18 16:00 62 01/14/18 16:00 98.6 63 18 103/52 (69) 98 98.6 01/14/18 15:40 66 20 98 Nasal Cannula 2.0 28 01/14/18 15:31 63 20 99 Nasal Cannula 2.0 28 01/14/18 12:00 61 01/14/18 12:00 98.2 63 18 118/63 (81) 96 98.2 01/14/18 10:32 64 20 100 Nasal Cannula 2.0 28 01/14/18 10:30 64 20 100 Nasal Cannula 2.0 28 01/14/18 10:21 99 Nasal Cannula 2.0 28 01/14/18 10:21 65 20 99 Nasal Cannula 2.0 28 01/14/18 10:21 Nasal Cannula 2.0 28 Intake and Output 01/14/18 01/15/18 19:00 07:00 Intake Total 915 ml Output Total 700 ml 900 ml Balance 215 ml -900 ml Intake Oral 840 ml IV Total 75 ml Output Urine Total 700 ml 900 ml # Bowel Movements 1 Objective GENERAL: A well-developed male, NAD HEENT: Overall negative. NECK: Supple. LUNGS: moderate air entry with no significant rhonchi or wheeze CARDIAC: Normal S1 and S2. Regular rate and rhythm without murmurs, rubs, or gallops. ABDOMEN: Soft, nontender, and nondistended. EXTREMITIES: No significant edema. Some reduction in range of motion. awake Laboratory Tests 01/15/18 07:10: White Blood Count 6.6, Red Blood Count 2.63L, Hemoglobin 8.8L, Hematocrit 26.7L , Mean Corpuscular Volume 101H, Mean Corpuscular Hemoglobin 33.6H, Mean Corpuscular Hemoglobin Concent 33.1, Red Cell Distribution Width 14.3, Platelet Count 190, Mean Platelet Volume 6.2L, Neutrophils (%) (Auto) 63.1, Lymphocytes ( %) (Auto) 27.3, Monocytes (%) (Auto) 6.9, Eosinophils (%) (Auto) 2.1, Basophils (%) (Auto) 0.6, Sodium Level 133L, Potassium Level 5.5H, Chloride Level 106, Carbon Dioxide Level 23, Anion Gap 4L, Blood Urea Nitrogen 28H, Creatinine 1.8H , Estimat Glomerular Filtration Rate , Glucose Level 125H, Calcium Level 7.8L, Total Bilirubin 1.3H, Direct Bilirubin 0.6H, Aspartate Amino Transf (AST/SGOT) 21, Alanine Aminotransferase (ALT/SGPT) 16, Alkaline Phosphatase 50, Total Protein 6.1L, Albumin 2.1L, Globulin 4.0, Albumin/Globulin Ratio 0.5L Current Medications Medications (Trade) Dose Ordered Sig/Kiya Route PRN Reason Start Time Stop Time Status Last Admin Dose Admin Acetaminophen (Tylenol) 650 mg Q4H PRN ORAL temp>100 01/10/18 01:30 02/07/18 17:29 01/11/18 09:17 Acetaminophen (Tylenol) 650 mg Q4H PRN ORAL Mild Pain (Pain Scale 1-3) 01/10/18 01:30 02/07/18 17:29 01/15/18 00:06 Acetaminophen/ Hydrocodone Bitart ([place] 5/325) 2 tab Q6H PRN ORAL Severe Pain (Pain Scale 7-10) 01/10/18 03:00 01/15/18 14:59 Acetaminophen/ Hydrocodone Bitart ([place] 7.5/325) 1 tab Q4H PRN ORAL Moderate Pain (Pain Scale 4-6) 01/10/18 03:00 01/15/18 14:59 01/15/18 08:59 Albuterol/ Ipratropium (Albuterol/ Ipratropium) 3 ml Q4HRT HHN 01/11/18 15:00 01/16/18 14:59 01/15/18 06:54 Alendronate Sodium (Fosamax) 70 mg ONCE A WEEK ORAL 01/10/18 06:00 02/09/18 05:59 01/10/18 06:06 Amiodarone HCl (Cordarone) 200 mg DAILY ORAL 01/10/18 09:00 02/07/18 08:59 01/15/18 08:28 Apixaban (Eliquis) 2.5 mg BID ORAL 01/13/18 09:00 02/12/18 08:59 01/15/18 08:27 Atorvastatin Calcium (Lipitor) 20 mg BEDTIME ORAL 01/10/18 21:00 02/06/18 20:59 01/14/18 21:00 Bisacodyl (Dulcolax) 10 mg DAILYPRN PRN RECTAL Constipation 01/10/18 13:00 02/06/18 12:59 Calcium Carbonate (OsCal D) 1 tab DAILY ORAL 01/10/18 09:00 02/07/18 08:59 01/15/18 08:27 Docusate Sodium (Colace) 100 mg Q12HR ORAL 01/10/18 21:00 02/08/18 20:59 01/15/18 08:27 Epoetin Oli (Procrit (for ESRD on dialysis)) 10,000 units SUN-SUN-SUN SUBQ 01/11/18 21:00 02/10/18 20:59 01/14/18 21:30 Ferrous Sulfate (Feosol) 300 mg Q12HR ORAL 01/10/18 21:00 02/08/18 20:59 01/15/18 08:27 Folic Acid (Folate) 1 mg DAILY ORAL 01/10/18 09:00 02/07/18 08:59 01/15/18 08:27 Gabapentin (Neurontin) 100 mg THREE TIMES A DAY ORAL 01/10/18 09:00 02/06/18 12:59 01/15/18 08:27 Lactulose (Cephulac) 20 gm DAILY PRN ORAL Constipation 01/10/18 09:00 02/06/18 12:59 Magnesium Hydroxide (Mom) 30 ml DAILYPRN PRN ORAL Constipation 01/10/18 15:00 02/07/18 14:59 01/11/18 02:34 Morphine Sulfate (Morphine Sulfate) 1 mg Q3H PRN IVP Pain scale 1-3 01/10/18 03:00 01/15/18 14:59 Ondansetron HCl (Zofran) 4 mg Q8H PRN IVP Nausea & Vomiting 01/10/18 07:00 02/07/18 14:59 Sodium Polystyrene Sulfonate (Kayexalate) 30 gm ONCE ORAL 01/15/18 09:15 01/15/18 10:15 Solifenacin (Vesicare) 5 mg DAILY ORAL 01/10/18 09:00 02/07/18 08:59 01/15/18 08:28 Roverto Abraham MD Jan 15, 2018 09:13
[2018-01-15] MEDS ORDERED: Sodium Polystyrene Sulfonate 15gm Powder ORAL SCH (09:15)
[2018-01-15 11:43] VITALS: BP 104/48
[2018-01-15 16:00] VITALS: BP 118/48
[2018-01-15] MEDS ORDERED: Tubing Blood Filter IV ONE (17:16)
[2018-01-15] MEDS ORDERED: NS 275ml ONE (17:16)
--- NOTE | 2018-01-15 23:57 | Cardiology Progress Note ---
Assessment/Plan Assessment/Plan 1. s/p Right hip ORIF, POD #7, no richard-operative cardiac events, continue Eliquis. 2. History of sick sinus syndrome, status post dual-chamber pacemaker implantation. 3. Paroxysmal atrial fibrillation, in SR, continue amiodarone. 4. History of dyslipidemia. 5. History of chronic kidney disease with associated anemia, s/p blood transfusion. Subjective Subjective Sinus rhythm at rate of 61. Objective Last 24 Hour Vital Signs Date Time Temp Pulse Resp B/P (MAP) Pulse Ox O2 Delivery O2 Flow Rate FiO2 01/15/18 16:00 96.8 61 20 118/48 (71) 98 96.8 01/15/18 15:04 62 18 100 Nasal Cannula 2.0 28 01/15/18 14:54 60 18 99 Nasal Cannula 2.0 28 01/15/18 12:00 60 01/15/18 11:43 98.8 62 18 104/48 (66) 100 98.8 01/15/18 11:29 64 20 100 Nasal Cannula 2.0 28 01/15/18 11:10 62 18 99 Nasal Cannula 2.0 28 01/15/18 09:00 Nasal Cannula 2.0 Nasal Cannula 2.0 01/15/18 08:00 96.6 61 18 101/41 (61) 97 96.6 01/15/18 08:00 61 01/15/18 07:02 66 20 100 Nasal Cannula 2.0 28 01/15/18 06:51 Nasal Cannula 2.0 28 01/15/18 06:51 98 Nasal Cannula 2.0 28 01/15/18 06:51 60 18 98 Nasal Cannula 2.0 28 01/15/18 04:00 99.6 61 16 113/51 (71) 99 99.6 01/15/18 04:00 60 01/15/18 03:32 64 22 100 Nasal Cannula 2.0 28 01/15/18 03:21 60 18 100 Nasal Cannula 2.0 28 01/15/18 01:05 99.0 01/15/18 00:06 100.7 01/15/18 00:00 60 01/15/18 00:00 100.8 62 18 126/54 (78) 98 100.8 Intake and Output 01/14/18 01/15/18 19:00 07:00 Intake Total 915 ml Output Total 700 ml 900 ml Balance 215 ml -900 ml Intake Oral 840 ml IV Total 75 ml Output Urine Total 700 ml 900 ml # Bowel Movements 1 2D Echo: EF 55-60%, Grade I LVDD, RVSP 46 mmHg Laboratory Tests Test 01/15/18 07:10 White Blood Count 6.6 K/UL (4.8-10.8) Red Blood Count 2.63 M/UL (4.20-5.40) L Hemoglobin 8.8 G/DL (12.0-16.0) L Hematocrit 26.7 % (37.0-47.0) L Mean Corpuscular Volume 101 FL (80-99) H Mean Corpuscular Hemoglobin 33.6 PG (27.0-31.0) H Mean Corpuscular Hemoglobin Concent 33.1 G/DL (32.0-36.0) Red Cell Distribution Width 14.3 % (11.6-14.8) Platelet Count 190 K/UL (150-450) Mean Platelet Volume 6.2 FL (6.5-10.1) L Neutrophils (%) (Auto) 63.1 % (45.0-75.0) Lymphocytes (%) (Auto) 27.3 % (20.0-45.0) Monocytes (%) (Auto) 6.9 % (1.0-10.0) Eosinophils (%) (Auto) 2.1 % (0.0-3.0) Basophils (%) (Auto) 0.6 % (0.0-2.0) Sodium Level 133 MMOL/L (136-145) L Potassium Level 5.5 MMOL/L (3.5-5.1) H Chloride Level 106 MMOL/L (98-107) Carbon Dioxide Level 23 MMOL/L (21-32) Anion Gap 4 mmol/L (5-15) L Blood Urea Nitrogen 28 mg/dL (7-18) H Creatinine 1.8 MG/DL (0.55-1.30) H Estimat Glomerular Filtration Rate mL/min (>60) Glucose Level 125 MG/DL (74-106) H Calcium Level 7.8 MG/DL (8.5-10.1) L Total Bilirubin 1.3 MG/DL (0.2-1.0) H Direct Bilirubin 0.6 MG/DL (0.0-0.3) H Aspartate Amino Transf (AST/SGOT) 21 U/L (15-37) Alanine Aminotransferase (ALT/SGPT) 16 U/L (12-78) Alkaline Phosphatase 50 U/L (46-116) Total Protein 6.1 G/DL (6.4-8.2) L Albumin 2.1 G/DL (3.4-5.0) L Globulin 4.0 g/dL Albumin/Globulin Ratio 0.5 (1.0-2.7) L Objective HEENT: Atraumatic and normocephalic. EENT: Pupils are equal, round, and reactive to light and accommodation. Extraocular muscles intact. NECK: JVP less than 5 cm. No carotid bruit. Carotid upstroke is 2+ bilaterally. CVS: Normal S1 and S2. Regular rate and rhythm. No murmurs, gallops, or rubs. Pacemaker pocket in the left pectoral area is visible. LUNGS: Clear to auscultation bilaterally. ABDOMEN: Soft, nontender, and nondistended. No hepatosplenomegaly. Positive bowel sounds. EXTREMITIES: No evidence of edema, clubbing, or cyanosis. Pro Yo MD Jan 15, 2018 23:57
--- NOTE | 2018-01-16 15:44 | Discharge Summary ---
Discharge Summary Discharge Summary _ DATE OF ADMISSION: 01/07/2018 DATE OF DISCHARGE: 2017 REASON FOR ADMISSION: 87 years old female with history of conduction system disease, status post pacemaker, hypertension, chronic kidney disease, history of renal cell carcinoma , status post nephrectomy, sustained mechanical fall at the [facility] facility and presented to emergency department for evaluation due to severe right hip pain. Upon evaluation x-ray of the right hip revealed intertrochanteric right hip fracture. Patient was admitted for further evaluation and management with diagnosis of right hip intertrochanteric fracture, mechanical fall, hypertension, history of renal cell carcinoma, status post nephrectomy, history of conduction system disease, status post pacemaker, hypertension CONSULTANTS: health professor Dr. Srinath lyle surgery Dr. Mart [facility] COURSE: Patient admitted . Cardiology and orthopedic surgery consults requested. Cardiology consult was requested for preoperative clearance. Troponin was negative. Patient was in sinus rhythm, no acute ischemic changes on EKG. Echocardiogram revealed preserved ejection fraction no wall motion abnormalities noted. Hardware Designer cleared patient for surgery. Patient was on amiodarone, likely had a history of paroxysmal atrial fibrillation. Currently was in sinus atrium. Amiodarone was continued as per health professor. Xarelto was on hold due to impending surgery. Surgeon seen and evaluated patient . Patient subsequently undergone on January 08 open reduction internal fixation right hip fracture. Pain management was addressed. Patient was working with physical and occupational therapists. Incentive spirometry encouraged while in the bed. Neurovascular status intact. Dressing change provided as needed. Patient exhibited evidence of anemia with hemoglobin 6.5 hematocrit 20.7. Lovenox was on hold, patient was on SCD for mechanical prophayxlsi of DVT. Patient required transfusion of 3 units of packed red blood cells. Hemoglobin and hematocrit stabilized, prior to discharge hemoglobin 8.8 hematocrit 26.7. Anticoagulation therapy started. Patient tolerated to be out of bed with physical therapy. Fall precautions maintained. Hip postoperative precautions implemented. Blood pressure was stable with current regimen Renal parameters, electrolytes were closely monitored; remained on the baseline , nephrotoxins were avoided. Electrolytes corrected as needed. GI prophylaxis provided. Patient was stable for discharge. FINAL DIAGNOSES: Right hip intertrochanteric fracture Mechanical fall Hypertension status post 01/08 open reduction internal fixation right hip fracture Anemia, status post blood transfusion History of sick sinus syndrome with dual-chamber pacemaker implantation Paroxysmal atrial fibrillation DISCHARGE MEDICATIONS: See Medication Reconciliation list. DISCHARGE INSTRUCTIONS: [facility] I have been assigned to dictate discharge summary for this account. I was not involved in the patient's management. Giovanna Hernandez NP Jan 16, 2018 15:44
--- NOTE | 2018-01-23 07:52 | Diagnostic Imaging Report ---
APPROVED REPORT CPT Code: 68814 Present Symptoms Comments: BILATERAL LEGS PAIN. BILATERAL: Imaging reveals a patent deep venous system bilaterally. There is no evidence of thrombus within the femoral, popliteal or tibial segments. The greater saphenous veins are also within normal limits. Doppler indicates normal spontaneous flow within these segments.
== END 2018-01-15 17:17 | DRG 482 ==
LOC: EDBD 03:41 → EMR 04:01 → EDBEDREQ 05:06 → 4E 05:55 → EDBEDREQ 06:43 → 2E 01-10 00:18
PROC: 0QS606Z Reposition Right Upper Femur with Intramedullary Internal Fixation Device, Open Approach (ICD-10-PCS; principal; 2018-01-08 12:00)
PROC: 30233N1 Transfusion of Nonautologous Red Blood Cells into Peripheral Vein, Percutaneous Approach (ICD-10-PCS; 2018-01-09)
DX: S72.141A Displaced intertrochanteric fracture of right femur, initial encounter for closed fracture (principal); N18.9 Chronic kidney disease, unspecified; I12.9 Hypertensive chronic kidney disease with stage 1 through stage 4 chronic kidney disease, or unspecified chronic kidney disease; Z95.0 Presence of cardiac pacemaker; D64.89 Other specified anemias; Z85.528 Personal history of other malignant neoplasm of kidney; Z90.5 Acquired absence of kidney; M81.0 Age-related osteoporosis without current pathological fracture; R06.82 Tachypnea, not elsewhere classified; I48.0 Paroxysmal atrial fibrillation; Z79.01 Long term (current) use of anticoagulants
CPT/HCPCS: 36415; 36600; 71045; 72170; 80048; 80053; 81001; 82248; 82803; 83735; 84484; 85007; 85025; 85610; 85730; 86850; 86900; 86901; 86920; 87070; 87081; 87205; 93005; 93306; 93970; 94003; 94150; 94640; 94664; 94760; 99285; C9399; J2250; J2405; J7620